=== PATIENT | female | born 1970 | race Two or more races ===

== ENCOUNTER → 2021-01-17 | Outpatient (RCR) | payer OTHER | LOC: M PT 01-04 09:50 | PROVIDERS: ATTEND Physician Assistant | DX: M48.061 Spinal stenosis, lumbar region without neurogenic claudication (principal) ==

== ENCOUNTER 2021-01-31 13:22 | Outpatient (RCR) | payer OTHER | END 2021-02-17 | LOC: M PT 13:22 | PROVIDERS: ATTEND Physician Assistant | DX: M48.061 Spinal stenosis, lumbar region without neurogenic claudication (principal) ==

== ENCOUNTER → 2021-10-11 | Outpatient (CLI) | payer OTHER ==
[~2021-10-11] MED LIST: ACAM0.05 PO; ACET-683 PO; AMLO1TAB24 PO; BUPR-69 PO; CILO50TA PO; DULO1CAP6 PO; FAMO40TA3 PO; FLUT15.820 NARES; HYDR-3363 PO; K-TA10TA2 PO; LORA-674 PO; LYRI150C PO; METF500T13 PO; METO1TAB7 PO; NALT50TA4 PO; PANT40TA29 PO; PRAZ2CAP PO; PREG150C PO; ROSU40TA4 PO; SUMA25TA3 PO; TOPI100T9 PO; TRAZ1TAB14 PO; VENTAER INH
== END ==
LOC: M PAIN 08:30
PROVIDERS: ATTEND Nurse Practitioner Family
DX: M54.50 Low back pain, unspecified (principal); G89.29 Other chronic pain; E11.40 Type 2 diabetes mellitus with diabetic neuropathy, unspecified; G43.909 Migraine, unspecified, not intractable, without status migrainosus; J44.9 Chronic obstructive pulmonary disease, unspecified; M79.7 Fibromyalgia; K21.9 Gastro-esophageal reflux disease without esophagitis; G47.33 Obstructive sleep apnea (adult) (pediatric); F17.210 Nicotine dependence, cigarettes, uncomplicated; Z86.59 Personal history of other mental and behavioral disorders; Z88.1 Allergy status to other antibiotic agents; Z88.5 Allergy status to narcotic agent; Z88.8 Allergy status to other drugs, medicaments and biological substances; Z91.013 Allergy to seafood; Z91.018 Allergy to other foods; Z91.030 Bee allergy status; Z91.041 Radiographic dye allergy status; E66.01 Morbid (severe) obesity due to excess calories; Z68.43 Body mass index [BMI] 50.0-59.9, adult; Z79.84 Long term (current) use of oral hypoglycemic drugs; Z79.899 Other long term (current) drug therapy

== ENCOUNTER → 2021-11-01 | Outpatient (CLI) | payer MEDICARE, OTHER ==
[~2021-11-01] MED LIST changes: -FLUT15.820 NARES; -K-TA10TA2 PO; -LYRI150C PO; -VENTAER INH
== END ==
LOC: M WHC 09:13
PROVIDERS: ATTEND Internal Medicine
DX: N63.21 Unspecified lump in the left breast, upper outer quadrant (principal); R92.0 Mammographic microcalcification found on diagnostic imaging of breast

== ENCOUNTER 2021-11-03 11:53 | Inpatient (IN) | payer MEDICARE, OTHER ==
[~2021-11-03] VITALS: Ht 177.8 cm; Wt 128.1 kg
[2021-11-03 12:13] LABS: BASO # 0.1 10^3/uL (0.0-0.2); BASO % 0.5 % (0.0-1.0); EOS # 0.3 10^3/uL (0.0-0.5); EOS % 2.5 % (0.0-3.0); HEMATOCRIT 41.2 % (36.0-47.0); HEMOGLOBIN 13.4 g/dl (12.0-15.5); LYMPH # 3.3 10^3/uL (1.5-5.0); LYMPH % 29.3 % (24.0-44.0); MEAN CORPUSCULAR HEMOGLOBIN 29.6 pg (27.0-33.0); MEAN CORPUSCULAR HGB CONC 32.5 g/dl (32.0-36.5); MEAN CORPUSCULAR VOLUME 91.2 fl (80.0-96.0); MONO # 0.5 10^3/uL (0.0-0.8); MONO % 4.8 % (2.0-8.0); NEUTROPHILS # 6.9 10^3/uL (1.5-8.5); NEUTROPHILS % 61.7 % (36.0-66.0); PLATELET COUNT, AUTOMATED 382 10^3/uL (150-450); RED BLOOD COUNT 4.52 10^6/uL (4.00-5.40); WHITE BLOOD COUNT 11.1 10^3/uL (4.0-10.0)
[2021-11-03] MEDS ORDERED: ASPIRIN 81 MG CHEW TABLET PO ONE (12:40)
[2021-11-03] MEDS ORDERED: MORPHINE 4 MG/ML 1ML VIAL/SYRINGE IV ONE ×2 (12:40→18:30)
[2021-11-03] MEDS ORDERED: GI COCKTAIL 50ML BTL(HYOSCYAMINE/MAALOX/LIDOCAINE VISCOUS)(1:3:1) PO ONE (12:40)
[2021-11-03 12:50] LABS: CK-MB VALUE MASS 1.7 NG/ML (<3.6); MB/CK RELATIVE INDEX 2.27 (< OR =4)
[2021-11-03 13:06] LABS: ALBUMIN 3.3 GM/DL (3.2-5.2); ALT/SGPT 29 U/L (12-78); BILIRUBIN,DIRECT < 0.1 MG/DL (0.0-0.2); BILIRUBIN,TOTAL 0.3 MG/DL (0.2-1.0); BLOOD UREA NITROGEN 9 MG/DL (7-18); CALCIUM LEVEL 8.8 MG/DL (8.5-10.1); CARBON DIOXIDE LEVEL 26 MEQ/L (21-32); CHLORIDE LEVEL 105 MEQ/L (98-107); CREATININE FOR GFR 0.72 MG/DL (0.55-1.30); GLOMERULAR FILTRATION RATE > 60.0 (>58); GLUCOSE, FASTING 218 MG/DL (70-100); LIPASE 158 U/L (73-393); POTASSIUM SERUM 4.4 MEQ/L (3.5-5.1); SODIUM LEVEL 137 MEQ/L (136-145); TOTAL PROTEIN 7.5 GM/DL (6.4-8.2)
[2021-11-03 13:45] LABS: CK-MB VALUE MASS 1.7 NG/ML (<3.6); MB/CK RELATIVE INDEX 2.33 (< OR =4)
[2021-11-03 14:49] LABS: RSV AMPLIFICATION NEGATIVE (NEGATIVE)
[2021-11-03] MEDS ORDERED: HYDR-3363 PO (15:34)
[2021-11-03] MEDS ORDERED: METO1TAB7 PO (15:34)
[2021-11-03] MEDS ORDERED: ACET-683 PO (15:34)
[2021-11-03] MEDS ORDERED: NALT50TA4 PO (15:34)
[2021-11-03] MEDS ORDERED: METF500T13 PO (15:34)
[2021-11-03] MEDS ORDERED: ACAM0.05 PO (15:34)
[2021-11-03] MEDS ORDERED: PRAZ2CAP PO (15:34)
[2021-11-03] MEDS ORDERED: FAMO40TA3 PO (15:34)
[2021-11-03] MEDS ORDERED: PANT40TA29 PO (15:34)
[2021-11-03] MEDS ORDERED: TRAZ1TAB14 PO (15:34)
[2021-11-03] MEDS ORDERED: DULO1CAP6 PO (15:34)
[2021-11-03] MEDS ORDERED: PREG150C PO (15:34)
[2021-11-03] MEDS ORDERED: TOPI100T9 PO (15:34)
[2021-11-03] MEDS ORDERED: LORA-674 PO (15:34)
[2021-11-03] MEDS ORDERED: BUPR-69 PO (15:34)
[2021-11-03] MEDS ORDERED: ROSU40TA4 PO (15:34)
[2021-11-03] MEDS ORDERED: HOME MED LIST COMPLETE! XX SCH ×2 (15:40→18:20)
[2021-11-03] MEDS ORDERED: METOPROLOL TART 25 MG TABLET PO ONE (18:10)
[2021-11-03] MEDS ORDERED: CILO50TA PO (18:20)
[2021-11-03] MEDS ORDERED: ACETAMINOPHEN TAB 650MG DOSE (2X325MG) PO PRN (19:15)
[2021-11-03 19:19] LABS: ERYTHROCYTE SEDIMENTATION RATE 43 mm/hr (0-20)
[2021-11-03] MEDS ORDERED: GLUCAGON INJ 1MG VIAL SC PRN (19:35)
[2021-11-03] MEDS ORDERED: DEXTROSE 50% 50 ML SYRINGE IV PRN (19:35)
[2021-11-03] MEDS ORDERED: GLUCOSE 4GM CHEW TABLET PO PRN (19:35)
[2021-11-03 19:40] LABS: HEMOGLOBIN A1c 7.1 %
[2021-11-03] MEDS ORDERED: LIDOCAINE 5% (LIDODERM) PATCH TD ONE (20:00)
[2021-11-03] MEDS ORDERED: PRAZOSIN 1 MG CAP PO SCH (21:00)
[2021-11-03] MEDS ORDERED: traZODone 50 MG TAB PO SCH (21:00)
[2021-11-03] MEDS ORDERED: ANALGESIC BALM CRM 3OZ TOP SCH (21:00)
[2021-11-03] MEDS ORDERED: INSULIN LISPRO (NovoLOG) PER UNIT SC SCH (21:00)
[2021-11-03 21:15] VITALS: BP 174/81
[2021-11-03] MEDS: ACETAMINOPHEN 500 MG TAB PO SCH (21:33)
[2021-11-03] MEDS: FAMOTIDINE 20 MG TAB PO SCH (21:34)
[2021-11-03 21:50] LABS: C REACTIVE PROTEIN QUANTITATIV 1.74 MG/DL (0.00-0.30); MAGNESIUM LEVEL 1.9 MG/DL (1.8-2.4)
[2021-11-03] MEDS: DULoxetine 30MG CAPSULE (CYMBALTA) PO SCH ×2 (22:28→22:40)
[2021-11-03] MEDS: ACAMPROSATE CALCIUM 333 MG TABLET (CAMPRAL) PO SCH ×2 (22:31→22:39)
[2021-11-03] MEDS: TOPIRAMATE (TopAMAX) 100 MG TAB PO SCH (22:32)
[2021-11-03] MEDS: buPROPion 100 MG TAB PO SCH ×2 (22:32→22:40)
[2021-11-03] MEDS: PROCHLORPERAZINE 10MG 2ML VIAL IV PRN (23:02)
[2021-11-03] MEDS: PREGABALIN 75 MG CAP(LYRICA) PO SCH (23:02)
[2021-11-04] VITALS (19 sets, daily range): BP systolic 122–201; BP diastolic 60–86; O2SAT 94–97
[2021-11-04 03:52] LABS: HEMATOCRIT 37.5 % (36.0-47.0); HEMOGLOBIN 12.6 g/dl (12.0-15.5); MEAN CORPUSCULAR HEMOGLOBIN 30.7 pg (27.0-33.0); MEAN CORPUSCULAR HGB CONC 33.6 g/dl (32.0-36.5); MEAN CORPUSCULAR VOLUME 91.5 fl (80.0-96.0); PLATELET COUNT, AUTOMATED 347 10^3/uL (150-450); WHITE BLOOD COUNT 12.6 10^3/uL (4.0-10.0)
[2021-11-04 04:22] LABS: ALBUMIN 2.9 GM/DL (3.2-5.2); ALT/SGPT 32 U/L (12-78); BILIRUBIN,TOTAL 0.3 MG/DL (0.2-1.0); BLOOD UREA NITROGEN 9 MG/DL (7-18); CALCIUM LEVEL 8.3 MG/DL (8.5-10.1); CARBON DIOXIDE LEVEL 22 MEQ/L (21-32); CHLORIDE LEVEL 108 MEQ/L (98-107); CK-MB VALUE MASS 1.6 NG/ML (<3.6); CREATININE FOR GFR 0.64 MG/DL (0.55-1.30); GLOMERULAR FILTRATION RATE > 60.0 (>58); GLUCOSE, FASTING 124 MG/DL (70-100); MAGNESIUM LEVEL 1.9 MG/DL (1.8-2.4); MB/CK RELATIVE INDEX 2.91 (< OR =4); POTASSIUM SERUM 3.9 MEQ/L (3.5-5.1); SODIUM LEVEL 138 MEQ/L (136-145); TOTAL PROTEIN 6.9 GM/DL (6.4-8.2)
[2021-11-04] MEDS: ACETAMINOPHEN 500 MG TAB PO SCH ×2 (06:12→14:55)
[2021-11-04] MEDS: INSULIN LISPRO (NovoLOG) PER UNIT SC SCH ×3 (07:30→17:30)
[2021-11-04] MEDS ORDERED: **NOTE PATIENT COMMENT** MISC XX SCH (08:00)
[2021-11-04] MEDS: buPROPion 100 MG TAB PO SCH (08:19)
[2021-11-04] MEDS: ACAMPROSATE CALCIUM 333 MG TABLET (CAMPRAL) PO SCH (08:19)
[2021-11-04] MEDS: FAMOTIDINE 20 MG TAB PO SCH (08:21)
[2021-11-04] MEDS: PREGABALIN 75 MG CAP(LYRICA) PO SCH (08:21)
[2021-11-04] MEDS: TOPIRAMATE (TopAMAX) 100 MG TAB PO SCH (08:23)
[2021-11-04] MEDS ORDERED: ROSUVASTATIN 10 MG TAB (CRESTOR) PO SCH (09:00)
[2021-11-04] MEDS ORDERED: METOPROLOL SUCC (TopROL XL) 50MG **XL** TAB PO SCH (09:00)
[2021-11-04] MEDS ORDERED: ENOXAPARIN 40MG/0.4ML SYRINGE (J1650 PER 10MG) SC SCH (09:00)
[2021-11-04] MEDS ORDERED: LORATADINE 10 MG TAB PO SCH (09:00)
[2021-11-04] MEDS ORDERED: NALTREXONE 50 MG TAB PO SCH (09:00)
[2021-11-04] MEDS ORDERED: DULoxetine 30MG CAPSULE (CYMBALTA) PO SCH (09:00)
[2021-11-04] MEDS ORDERED: PANTOPRAZOLE 40MG TAB (PROTONIX) PO SCH (09:00)
[2021-11-04] MEDS ORDERED: amLODIPine 5 MG TAB PO SCH (10:40)
[2021-11-04] MEDS ORDERED: hydrALAZINE 20MG/ML 1ML VIAL (J0360 PER 20MG) IV ONE (10:40)
[2021-11-04] MEDS: PROCHLORPERAZINE 10MG 2ML VIAL IV PRN (10:59)
[2021-11-04 11:05] LABS: VITAMIN B12 LEVEL 484 PG/ML (247-911)
[2021-11-04] MEDS ORDERED: hydrALAZINE 20MG/ML 1ML VIAL (J0360 PER 20MG) IV STA (11:23)
[2021-11-04] MEDS ORDERED: ONDANSETRON 4MG 2ML VIAL IV PRN (11:25)
[2021-11-04] MEDS ORDERED: SUMA25TA3 PO (12:33)
[2021-11-04] MEDS ORDERED: HOME MED LIST COMPLETE! XX SCH (12:35)
[2021-11-04] MEDS ORDERED: SUMAtriptan SUCCINATE 25 MG TAB PO PRN (14:00)
[2021-11-04] MEDS ORDERED: AMLO1TAB24 PO (17:06)
[2021-11-04] MEDS ORDERED: metFORMIN (GLUCOPHAGE) 500MG TAB PO SCH (21:00)
== END 2021-11-04 18:27 | disposition home or self-care (01) | DRG 552 ==
LOC: M ED 11:53 → EDBD 11:53 → M ED INP 19:15 → ENRESERVTM 20:13 → ENRESERVDT 20:13 → M PCU 21:14
PROVIDERS: ADMIT Internal Medicine; ATTEND Internal Medicine
DX: M54.2 Cervicalgia (principal); R07.89 Other chest pain; E66.01 Morbid (severe) obesity due to excess calories; M48.061 Spinal stenosis, lumbar region without neurogenic claudication; E11.9 Type 2 diabetes mellitus without complications; G89.29 Other chronic pain; F17.210 Nicotine dependence, cigarettes, uncomplicated; D72.829 Elevated white blood cell count, unspecified; I10 Essential (primary) hypertension; Z90.49 Acquired absence of other specified parts of digestive tract; N63.21 Unspecified lump in the left breast, upper outer quadrant; Z20.822 Contact with and (suspected) exposure to COVID-19; Z88.2 Allergy status to sulfonamides; Z88.8 Allergy status to other drugs, medicaments and biological substances; Z91.013 Allergy to seafood; Z91.018 Allergy to other foods; Z91.041 Radiographic dye allergy status; Z79.899 Other long term (current) drug therapy; I16.0 Hypertensive urgency; R13.10 Dysphagia, unspecified; G43.909 Migraine, unspecified, not intractable, without status migrainosus

== ENCOUNTER → 2021-11-13 | Outpatient (CLI) | payer MEDICARE, OTHER ==
[~2021-11-13] MED LIST changes: +FLUT15.820 NARES; +K-TA10TA2 PO; +LYRI150C PO; +VENTAER INH
[2021-11-13 11:54] VITALS: BP 130/84
== END ==
LOC: M WHCPRO 09:45
PROVIDERS: ATTEND Surgery
DX: C50.412 Malignant neoplasm of upper-outer quadrant of left female breast (principal)

== ENCOUNTER → 2021-11-20 | Outpatient (CLI) | payer MEDICARE, OTHER ==
[2021-11-20 09:14] VITALS: BP 130/90
== END ==
LOC: M WHCPRO 07:39
PROVIDERS: ATTEND Surgery
DX: N60.22 Fibroadenosis of left breast (principal)

== ENCOUNTER → 2021-12-16 | Outpatient (CLI) | payer MEDICARE, OTHER ==
[~2021-12-16] MED LIST changes: +ACET-897 PO; +DILA2TAB6 PO
== END ==
LOC: M LABSMTC 11:27
PROVIDERS: ATTEND Anesthesiology
DX: Z01.812 Encounter for preprocedural laboratory examination (principal); Z20.822 Contact with and (suspected) exposure to COVID-19

== ENCOUNTER 2021-12-17 08:21 | Observation (INO) | payer MEDICARE, OTHER ==
[~2021-12-17] VITALS: Ht 177.8 cm; Wt 129.2 kg
[~2021-12-17 08:21] MED LIST changes: -ACET-897 PO; -DILA2TAB6 PO; +HEPARIN SOD (PORCINE) 5000UNITS/ML 1ML VIAL/SYRINGE SQ ONE; +NS 1,000 ML IV ONE; +ceFAZolin SOD 1 GM in D5W MINI-BAG PLUS 50 ML IV ONE; +ceFAZolin SOD 2 GM in IV 1 EA IV ONE
[2021-12-17] MEDS ORDERED: LIDOCAINE 2% 100MG/5ML SDV (FOR ANES.) As Ordered ONE (12:23)
[2021-12-17] MEDS ORDERED: propofoL 200 MG/20 ML VIAL As Ordered ONE ×2 (12:23→15:03)
[2021-12-17] MEDS ORDERED: ROCURONIUM BROMIDE 50 MG/5 ML VIAL As Ordered ONE (12:23)
[2021-12-17] MEDS ORDERED: dexameTHASONE 4 MG/ML 1ML VIAL (J1100 PER 1MG) As Ordered ONE (12:23)
[2021-12-17] MEDS ORDERED: fentaNYL 250 MCG/5 ML INJECTION As Ordered ONE (12:26)
[2021-12-17] MEDS ORDERED: MIDAZOLAM INJ 2MG/2ML VIAL (J2250 PER 1MG) As Ordered ONE (12:26)
[2021-12-17] MEDS ORDERED: NEOSTIGMINE 10MG/10ML VIAL (J2710 PER 0.5MG) As Ordered ONE (12:46)
[2021-12-17] MEDS ORDERED: ONDANSETRON 4MG 2ML VIAL As Ordered ONE (12:47)
[2021-12-17] MEDS ORDERED: LIDOCAINE 1% SDV 30ML VIAL As Ordered ONE (13:19)
[2021-12-17] MEDS ORDERED: BUPIVACAINE HCL 0.25% 30ML VIAL As Ordered ONE (13:19)
[2021-12-17] MEDS ORDERED: METHYLENE BLUE 0.5% (5MG/ML) 10 ML AMP (PROVAYBLUE) As Ordered ONE (13:19)
[2021-12-17] MEDS ORDERED: BUPIVACAINE LIPOSOME/PF 1.3% 20ML VIAL (13.3MG/ML)(EXPAREL) As Ordered ONE (13:50)
[2021-12-17] MEDS ORDERED: ALBUTEROL 6.7GM INHALER **FOR ANES. CART/OMNICELL ONLY As Ordered ONE (14:09)
[2021-12-17] MEDS ORDERED: SUGAMMADEX SODIUM 500 MG/5 ML VIAL (BRIDION) As Ordered ONE (14:17)
[2021-12-17] MEDS ORDERED: KETAMINE HCL 200 MG/20 ML VIAL As Ordered ONE (14:31)
[2021-12-17] MEDS ORDERED: ACETAMINOPHEN 1000MG 100ML IV BTL (OFIRMEV) (J0131 PER 10MG) As Ordered ONE (14:38)
[2021-12-17] MEDS ORDERED: PHENYLephrine 500MCG 5ML (100MCG/ML) SYRINGE As Ordered ONE (15:08)
[2021-12-17] MEDS ORDERED: ONDANSETRON 4MG 2ML VIAL IV PRN ×2 (17:35→17:40)
[2021-12-17] MEDS ORDERED: ACETAMINOPHEN TAB 650MG DOSE (2X325MG) PO PRN (17:35)
[2021-12-17] MEDS ORDERED: oxyCODONE 5MG TAB PO PRN ×2 (17:35→17:40)
[2021-12-17] MEDS ORDERED: LR 1,000 ML IV SCH ×2 (17:35→17:40)
[2021-12-17] MEDS ORDERED: fentaNYL 100 MCG/2 ML INJECTION IV PRN (17:40)
[2021-12-17] MEDS ORDERED: HYDROMORPHONE HCL 0.5 MG/ 0.5 ML SYRINGE (J1170 PER 1) IV PRN (17:40)
[2021-12-17] MEDS ORDERED: SUMAtriptan SUCCINATE 25 MG TAB PO PRN (18:25)
[2021-12-17] MEDS ORDERED: ALBUTEROL 90 MCG/ACT 8GM HFA INHALER INH PRN (18:25)
[2021-12-17] MEDS ORDERED: PILL CUTTER 1 EACH XX PRN (19:35)
[2021-12-17] MEDS ORDERED: ACET-897 PO (20:20)
[2021-12-17] MEDS ORDERED: HOME MED LIST COMPLETE! XX SCH (20:25)
[2021-12-17 20:30] VITALS: BP 152/88
[2021-12-17 21:00] VITALS: BP 154/88
[2021-12-17] MEDS: DULoxetine 30MG CAPSULE (CYMBALTA) PO SCH ×2 (21:00→23:11)
[2021-12-17] MEDS ORDERED: PRAZOSIN 1 MG CAP PO SCH (21:00)
[2021-12-17] MEDS ORDERED: traZODone 50 MG TAB PO SCH (21:00)
[2021-12-17] MEDS ORDERED: TOPIRAMATE (TopAMAX) 100 MG TAB PO SCH (21:00)
[2021-12-17] MEDS ORDERED: FAMOTIDINE 20 MG TAB PO SCH ×2 (21:00)
[2021-12-17 22:00] VITALS: BP 125/68
[2021-12-17] MEDS ORDERED: ceFAZolin SOD 3 GM in D5W MINI-BAG PLUS 50 ML IV SCH (22:00)
[2021-12-17 23:00] VITALS: BP 122/69
[2021-12-17] MEDS: PANTOPRAZOLE 40MG TAB (PROTONIX) PO SCH (23:10)
[2021-12-17] MEDS: PREGABALIN 75 MG CAP(LYRICA) PO SCH (23:11)
[2021-12-17] MEDS: ACAMPROSATE CALCIUM 333 MG TABLET (CAMPRAL) PO SCH (23:11)
[2021-12-17] MEDS: buPROPion 100 MG TAB PO SCH (23:11)
[2021-12-17] MEDS: ceFAZolin SOD 2 GM in IV 1 EA IV SCH (23:12)
[2021-12-17] MEDS: HEPARIN SOD (PORCINE) 5000UNITS/ML 1ML VIAL/SYRINGE SQ SCH (23:13)
[2021-12-18] VITALS: BP 130/65
[2021-12-18] MEDS: ceFAZolin SOD 1 GM in D5W MINI-BAG PLUS 50 ML IV SCH ×2 (00:11→05:38)
[2021-12-18 02:00] VITALS: BP 128/69
[2021-12-18] MEDS: ceFAZolin SOD 2 GM in IV 1 EA IV SCH (05:38)
[2021-12-18] MEDS: HEPARIN SOD (PORCINE) 5000UNITS/ML 1ML VIAL/SYRINGE SQ SCH (05:39)
[2021-12-18 06:00] VITALS: BP 128/69
[2021-12-18] MEDS ORDERED: CILOSTAZOL 100 MG TAB (PLETAL) PO SCH (07:30)
[2021-12-18] MEDS: PREGABALIN 75 MG CAP(LYRICA) PO SCH (08:10)
[2021-12-18 08:11] VITALS: BP 130/67
[2021-12-18] MEDS: ACAMPROSATE CALCIUM 333 MG TABLET (CAMPRAL) PO SCH (08:12)
[2021-12-18] MEDS: PANTOPRAZOLE 40MG TAB (PROTONIX) PO SCH (08:12)
[2021-12-18] MEDS: buPROPion 100 MG TAB PO SCH ×2 (08:12→08:19)
[2021-12-18] MEDS: DULoxetine 30MG CAPSULE (CYMBALTA) PO SCH (08:18)
[2021-12-18] MEDS ORDERED: DILA2TAB6 PO (08:22)
[2021-12-18] MEDS ORDERED: NALTREXONE 50 MG TAB PO SCH (09:00)
[2021-12-18] MEDS ORDERED: amLODIPine 5 MG TAB PO SCH (09:00)
[2021-12-18] MEDS ORDERED: POTASSIUM CHLORIDE 10MEQ SR TABLET PO SCH (09:00)
[2021-12-18] MEDS ORDERED: ROSUVASTATIN 10 MG TAB (CRESTOR) PO SCH (09:00)
[2021-12-18] MEDS ORDERED: METOPROLOL SUCC (TopROL XL) 50MG **XL** TAB PO SCH (09:00)
[2021-12-18] MEDS ORDERED: PANTOPRAZOLE 40MG TAB (PROTONIX) PO SCH (09:00)
[2021-12-18] MEDS ORDERED: FLUTICASONE PROP 0.05% NASAL SPRAY 16 GM (FLONASE) NARES PRN (09:00)
[2021-12-18] MEDS ORDERED: LORATADINE 10 MG TAB PO SCH (09:00)
[2021-12-18] MEDS ORDERED: metFORMIN (GLUCOPHAGE) 500MG TAB PO SCH (17:30)
== END 2021-12-18 11:15 | disposition home or self-care (01) ==
LOC: M SDC 08:21 → M MS5PR 08:22 → M ED INP 17:33 → M MS5PR 20:00
PROVIDERS: ADMIT Surgery; ATTEND Surgery
DX: C50.912 Malignant neoplasm of unspecified site of left female breast (principal); Z17.0 Estrogen receptor positive status [ER+]; F10.11 Alcohol abuse, in remission; J44.9 Chronic obstructive pulmonary disease, unspecified; G43.909 Migraine, unspecified, not intractable, without status migrainosus; F32.A Depression, unspecified; M79.7 Fibromyalgia; Z79.899 Other long term (current) drug therapy; G47.33 Obstructive sleep apnea (adult) (pediatric); K21.9 Gastro-esophageal reflux disease without esophagitis; I10 Essential (primary) hypertension; F43.10 Post-traumatic stress disorder, unspecified; Z79.84 Long term (current) use of oral hypoglycemic drugs; E11.9 Type 2 diabetes mellitus without complications; E78.49 Other hyperlipidemia; F17.210 Nicotine dependence, cigarettes, uncomplicated; Z91.041 Radiographic dye allergy status; Z88.2 Allergy status to sulfonamides; Z88.5 Allergy status to narcotic agent; Z88.8 Allergy status to other drugs, medicaments and biological substances; Z91.030 Bee allergy status; Z91.013 Allergy to seafood; Z91.018 Allergy to other foods
CPT/HCPCS: 19125; 36415; 38525; 76942; 78195; 81025; 86850; 86900; 86901; 88307; 96365; 96366; 96372; A4648; A9520; C9290; G0378; J0131; J0690; J1100; J1644; J2250; J2370; J2405; J3010; Q9968

== ENCOUNTER → 2022-01-06 | Outpatient (CLI) | payer MEDICARE, OTHER ==
[~2022-01-06] MED LIST changes: +ACET-897 PO; +DILA2TAB6 PO; -HEPARIN SOD (PORCINE) 5000UNITS/ML 1ML VIAL/SYRINGE SQ ONE; +LIDOCAINE 1% MDV 20ML VIAL As Ordered ONE; +MIDAZOLAM INJ 2MG/2ML VIAL (J2250 PER 1MG) As Ordered ONE; -NS 1,000 ML IV ONE; +NS 1,000 ML IV SCH; +PROMETHAZINE 25MG/ML 1ML VIAL As Ordered ONE; +ceFAZolin 2 GM/D5W 50 ML IV BAG (J0690 PER 500MG) As Ordered ONE; -ceFAZolin SOD 1 GM in D5W MINI-BAG PLUS 50 ML IV ONE; +diphenhydrAMINE 50MG/ML VIAL (J1200) As Ordered ONE; +fentaNYL 100 MCG/2 ML INJECTION As Ordered ONE
[2022-01-06 14:00] VITALS: BP 137/69
== END ==
LOC: M IRPRO 08:56
PROVIDERS: ATTEND Specialist
DX: C50.919 Malignant neoplasm of unspecified site of unspecified female breast (principal)
CPT/HCPCS: 36561; 87635; 99152; 99153; C1769; C1788; C1894; J0690; J1200; J1642; J1644; J2250; J3010

== ENCOUNTER → 2022-01-23 | Outpatient (CLI) | payer MEDICARE, OTHER ==
[~2022-01-23] MED LIST changes: -LIDOCAINE 1% MDV 20ML VIAL As Ordered ONE; -MIDAZOLAM INJ 2MG/2ML VIAL (J2250 PER 1MG) As Ordered ONE; -NS 1,000 ML IV SCH; -PROMETHAZINE 25MG/ML 1ML VIAL As Ordered ONE; -ceFAZolin 2 GM/D5W 50 ML IV BAG (J0690 PER 500MG) As Ordered ONE; -ceFAZolin SOD 2 GM in IV 1 EA IV ONE; -diphenhydrAMINE 50MG/ML VIAL (J1200) As Ordered ONE; -fentaNYL 100 MCG/2 ML INJECTION As Ordered ONE
== END ==
LOC: M CARPUL 08:08
PROVIDERS: ATTEND Specialist
DX: C50.919 Malignant neoplasm of unspecified site of unspecified female breast (principal); Z79.899 Other long term (current) drug therapy; R93.1 Abnormal findings on diagnostic imaging of heart and coronary circulation

== ENCOUNTER 2022-02-10 14:22 | Outpatient (RCR) | payer MEDICARE, OTHER ==
[~2022-02-10 14:22] MED LIST changes: -CILO50TA PO; +CILO50TA2 PO
[2022-02-13] MEDS ORDERED: BUPR-364 PO (16:46)
[2022-02-14] MEDS ORDERED: FLON1SPR (02:05)
[2022-02-14] MEDS ORDERED: ALBU8.5H INH (02:05)
[2022-02-14] MEDS ORDERED: LYRI150C PO (02:05)
[2022-02-14] MEDS ORDERED: AMLO1TAB24 PO (02:05)
[2022-02-14] MEDS ORDERED: IPRA0.00 INH (02:05)
[2022-02-15] MEDS ORDERED: FLON1SPR (10:51)
[2022-02-15] MEDS ORDERED: AMLO10TA PO (10:51)
[2022-02-15] MEDS ORDERED: IBUP-1114 PO (10:56)
== END 2022-02-17 ==
LOC: M PT 14:22
PROVIDERS: ATTEND Nurse Practitioner Women's Health
DX: C50.912 Malignant neoplasm of unspecified site of left female breast (principal)

== ENCOUNTER 2022-02-11 10:35 | Outpatient (RCR) | payer MEDICARE, OTHER ==
[2022-02-13] MEDS ORDERED: BUPR-364 PO (16:46)
[2022-02-14] MEDS ORDERED: AMLO1TAB24 PO (02:05)
[2022-02-14] MEDS ORDERED: LYRI150C PO (02:05)
[2022-02-14] MEDS ORDERED: IPRA0.00 INH (02:05)
[2022-02-14] MEDS ORDERED: ALBU8.5H INH (02:05)
[2022-02-14] MEDS ORDERED: FLON1SPR (02:05)
[2022-02-15] MEDS ORDERED: AMLO10TA PO (10:51)
[2022-02-15] MEDS ORDERED: FLON1SPR (10:51)
[2022-02-15] MEDS ORDERED: IBUP-1114 PO (10:56)
== END 2022-02-17 ==
LOC: M ONCR 10:35
PROVIDERS: ATTEND General Practice
DX: C50.412 Malignant neoplasm of upper-outer quadrant of left female breast (principal)

== ENCOUNTER 2022-02-13 16:18 | Observation (INO) | payer MEDICARE, OTHER ==
[~2022-02-13] VITALS: Ht 177.8 cm; Wt 132.6 kg
[~2022-02-13 16:18] MED LIST changes: +SODIUM CHLORIDE 0.9% INJ 10 ML SYR IV SCH
[2022-02-13] MEDS ORDERED: BUPR-364 PO (16:46)
[2022-02-13 19:51] LABS: RSV AMPLIFICATION NEGATIVE (NEGATIVE)
[2022-02-13 21:55] LABS: BASO # 0.1 10^3/uL (0.0-0.2); BASO % 0.5 % (0.0-1.0); EOS # 0.4 10^3/uL (0.0-0.5); EOS % 2.8 % (0.0-3.0); HEMATOCRIT 41.5 % (36.0-47.0); HEMOGLOBIN 13.3 g/dl (12.0-15.5); LYMPH # 4.7 10^3/uL (1.5-5.0); MEAN CORPUSCULAR HEMOGLOBIN 29.6 pg (27.0-33.0); MEAN CORPUSCULAR VOLUME 92.2 fl (80.0-96.0); MONO # 0.6 10^3/uL (0.0-0.8); MONO % 4.4 % (2.0-8.0); NEUTROPHILS # 8.6 10^3/uL (1.5-8.5); NEUTROPHILS % 59.1 % (36.0-66.0); PLATELET COUNT, AUTOMATED 357 10^3/uL (150-450); WHITE BLOOD COUNT 14.5 10^3/uL (4.0-10.0)
[2022-02-13 22:18] LABS: INR 0.85; PROTHROMBIN TIME 11.8 SECONDS (12.5-14.5)
[2022-02-13 22:19] LABS: PARTIAL THROMBOPLASTIN TIME 20.5 SECONDS (24.8-34.2)
[2022-02-13 22:21] LABS: D-DIMER QUANT 1030.13 ng/ml (<500)
[2022-02-13 22:24] LABS: CK-MB VALUE MASS 1.5 NG/ML (<3.6); MB/CK RELATIVE INDEX 2.21 (< OR =4)
[2022-02-13 22:28] LABS: BLOOD UREA NITROGEN 11 MG/DL (7-18); CARBON DIOXIDE LEVEL 22 MEQ/L (21-32); CHLORIDE LEVEL 108 MEQ/L (98-107); CREATININE FOR GFR 0.64 MG/DL (0.55-1.30); GLOMERULAR FILTRATION RATE > 60.0 (>58); GLUCOSE, FASTING 110 MG/DL (70-100); SODIUM LEVEL 137 MEQ/L (136-145)
[2022-02-13 22:29] LABS: ALBUMIN 3.4 GM/DL (3.2-5.2); ALT/SGPT 34 U/L (12-78); BILIRUBIN,DIRECT < 0.1 MG/DL (0.0-0.2); BILIRUBIN,TOTAL 0.2 MG/DL (0.2-1.0); CALCIUM LEVEL 9.5 MG/DL (8.5-10.1); FREE T4 0.91 NG/DL (0.76-1.46); LIPASE 172 U/L (73-393); NT-PRO BNP 81 PG/ML (<125); TOTAL PROTEIN 7.6 GM/DL (6.4-8.2)
[2022-02-13] MEDS ORDERED: ENOXAPARIN 100MG/1ML SYRINGE (J1650 PER 10MG) SC ONE (23:10)
[2022-02-13] MEDS ORDERED: ENOXAPARIN 150MG/ML SYRINGE (J1650 PER 10MG) SC ONE (23:30)
[2022-02-13] MEDS ORDERED: PRAZOSIN 1 MG CAP PO ONE (23:40)
[2022-02-13] MEDS ORDERED: traZODone 50 MG TAB PO ONE (23:40)
[2022-02-13] MEDS ORDERED: ACETAMINOPHEN TAB 650MG DOSE (2X325MG) PO PRN (23:40)
[2022-02-13] MEDS ORDERED: PERCOCET 5MG/325MG TAB PO PRN ×2 (23:40)
[2022-02-13] MEDS ORDERED: PANTOPRAZOLE 40MG TAB (PROTONIX) PO ONE (23:45)
[2022-02-13] MEDS ORDERED: FAMOTIDINE 20 MG TAB PO ONE (23:45)
[2022-02-14] MEDS ORDERED: AMLO1TAB24 PO (02:05)
[2022-02-14] MEDS ORDERED: LYRI150C PO (02:05)
[2022-02-14] MEDS ORDERED: ALBU8.5H INH (02:05)
[2022-02-14] MEDS ORDERED: IPRA0.00 INH (02:05)
[2022-02-14] MEDS ORDERED: FLON1SPR (02:05)
[2022-02-14] MEDS ORDERED: HOME MED LIST COMPLETE! XX SCH (02:10)
[2022-02-14] MEDS ORDERED: PREGABALIN 75 MG CAP(LYRICA) PO PRN (02:30)
[2022-02-14] MEDS ORDERED: FLUTICASONE PROP 0.05% NASAL SPRAY 16 GM (FLONASE) PRN (02:30)
[2022-02-14] MEDS ORDERED: ACAMPROSATE CALCIUM 333 MG TABLET (CAMPRAL) PO PRN (02:30)
[2022-02-14] MEDS ORDERED: ALBUTEROL 90 MCG/ACT 8GM HFA INHALER INH PRN (02:30)
[2022-02-14] MEDS ORDERED: IPRATROPIUM 0.5MG/ALBUTEROL 2.5MG INH SOL UD 3ML (DUONEB) INH PRN (02:30)
[2022-02-14] MEDS ORDERED: SUMAtriptan SUCCINATE 25 MG TAB PO PRN (02:30)
[2022-02-14] MEDS ORDERED: PILL CUTTER 1 EACH XX PRN (03:35)
[2022-02-14] MEDS: CILOSTAZOL 100 MG TAB (PLETAL) PO SCH ×2 (08:11→18:52)
[2022-02-14] MEDS: LORATADINE 10 MG TAB PO SCH (08:11)
[2022-02-14] MEDS: DULoxetine 30MG CAPSULE (CYMBALTA) PO SCH ×2 (08:11→20:31)
[2022-02-14] MEDS: PANTOPRAZOLE 40MG TAB (PROTONIX) PO SCH ×2 (08:11→20:30)
[2022-02-14 08:34] LABS: HEMATOCRIT 40.6 % (36.0-47.0); HEMOGLOBIN 12.9 g/dl (12.0-15.5); MEAN CORPUSCULAR HEMOGLOBIN 29.5 pg (27.0-33.0); MEAN CORPUSCULAR HGB CONC 31.8 g/dl (32.0-36.5); MEAN CORPUSCULAR VOLUME 92.9 fl (80.0-96.0); PLATELET COUNT, AUTOMATED 384 10^3/uL (150-450); RED BLOOD COUNT 4.37 10^6/uL (4.00-5.40); WHITE BLOOD COUNT 11.3 10^3/uL (4.0-10.0)
[2022-02-14] MEDS ORDERED: POTASSIUM CHLORIDE 10MEQ SR TABLET PO SCH (09:00)
[2022-02-14] MEDS ORDERED: amLODIPine 5 MG TAB PO SCH (09:00)
[2022-02-14] MEDS ORDERED: FAMOTIDINE 20 MG TAB PO SCH (09:00)
[2022-02-14 14:30] VITALS: BP 150/72
[2022-02-14] MEDS ORDERED: metFORMIN (GLUCOPHAGE) 500MG TAB PO SCH (18:00)
[2022-02-14 20:00] VITALS: BP 182/104
[2022-02-14 20:12] VITALS: BP 158/90
[2022-02-14] MEDS ORDERED: traZODone 50 MG TAB PO SCH (21:00)
[2022-02-14] MEDS ORDERED: ROSUVASTATIN 10 MG TAB (CRESTOR) PO SCH (21:00)
[2022-02-14] MEDS ORDERED: buPROPion 100 MG TAB PO SCH (21:00)
[2022-02-14] MEDS ORDERED: PRAZOSIN 1 MG CAP PO SCH (21:00)
[2022-02-14] MEDS ORDERED: METOPROLOL SUCC (TopROL XL) 50MG **XL** TAB PO SCH (21:00)
[2022-02-14] MEDS ORDERED: TOPIRAMATE (TopAMAX) 100 MG TAB PO SCH (21:00)
[2022-02-14 21:29] LABS: ERYTHROCYTE SEDIMENTATION RATE 46 mm/hr (0-20)
[2022-02-15 06:00] VITALS: BP 133/80
[2022-02-15] MEDS ORDERED: ENOXAPARIN 40MG/0.4ML SYRINGE (J1650 PER 10MG) SC SCH (09:00)
[2022-02-15 09:05] LABS: BASO % 0.3 % (0.0-1.0); EOS # 0.2 10^3/uL (0.0-0.5); EOS % 1.5 % (0.0-3.0); HEMATOCRIT 40.7 % (36.0-47.0); LYMPH # 2.7 10^3/uL (1.5-5.0); LYMPH % 20.6 % (24.0-44.0); MEAN CORPUSCULAR HEMOGLOBIN 29.7 pg (27.0-33.0); MEAN CORPUSCULAR HGB CONC 31.9 g/dl (32.0-36.5); MEAN CORPUSCULAR VOLUME 93.1 fl (80.0-96.0); MONO # 0.6 10^3/uL (0.0-0.8); MONO % 4.6 % (2.0-8.0); NEUTROPHILS # 9.4 10^3/uL (1.5-8.5); NEUTROPHILS % 72.3 % (36.0-66.0); PLATELET COUNT, AUTOMATED 366 10^3/uL (150-450); RED BLOOD COUNT 4.37 10^6/uL (4.00-5.40)
[2022-02-15] MEDS: PANTOPRAZOLE 40MG TAB (PROTONIX) PO SCH (09:37)
[2022-02-15] MEDS: DULoxetine 30MG CAPSULE (CYMBALTA) PO SCH (09:37)
[2022-02-15 09:39] VITALS: BP 132/59
[2022-02-15] MEDS: LORATADINE 10 MG TAB PO SCH (09:39)
[2022-02-15 09:40] LABS: BLOOD UREA NITROGEN 12 MG/DL (7-18); CALCIUM LEVEL 9.2 MG/DL (8.5-10.1); CARBON DIOXIDE LEVEL 25 MEQ/L (21-32); CHLORIDE LEVEL 104 MEQ/L (98-107); CREATININE FOR GFR 0.82 MG/DL (0.55-1.30); GLOMERULAR FILTRATION RATE > 60.0 (>58); GLUCOSE, FASTING 157 MG/DL (70-100); POTASSIUM SERUM 3.8 MEQ/L (3.5-5.1); SODIUM LEVEL 135 MEQ/L (136-145)
[2022-02-15] MEDS: CILOSTAZOL 100 MG TAB (PLETAL) PO SCH (09:43)
[2022-02-15] MEDS ORDERED: AMLO10TA PO (10:51)
[2022-02-15] MEDS ORDERED: FLON1SPR (10:51)
[2022-02-15] MEDS ORDERED: IBUP-1114 PO (10:56)
== END 2022-02-15 13:10 | disposition home or self-care (01) ==
LOC: M ED 16:18 → M ED INP 16:19 → ENRESERV 02-14 13:32 → M MSPAV 02-14 14:28
PROVIDERS: ADMIT Family Medicine; ATTEND Internal Medicine
DX: R07.89 Other chest pain (principal); R79.89 Other specified abnormal findings of blood chemistry; D72.829 Elevated white blood cell count, unspecified; Z87.820 Personal history of traumatic brain injury; G43.909 Migraine, unspecified, not intractable, without status migrainosus; Z85.3 Personal history of malignant neoplasm of breast; E11.9 Type 2 diabetes mellitus without complications; I10 Essential (primary) hypertension; E78.5 Hyperlipidemia, unspecified; M79.7 Fibromyalgia; J45.909 Unspecified asthma, uncomplicated; K21.9 Gastro-esophageal reflux disease without esophagitis; I73.9 Peripheral vascular disease, unspecified; Z91.041 Radiographic dye allergy status; Z91.030 Bee allergy status; Z91.018 Allergy to other foods; Z91.013 Allergy to seafood; Z88.8 Allergy status to other drugs, medicaments and biological substances; Z88.5 Allergy status to narcotic agent; Z79.84 Long term (current) use of oral hypoglycemic drugs; Z79.899 Other long term (current) drug therapy
CPT/HCPCS: 36415; 71045; 78582; 80048; 80076; 82550; 82553; 83690; 83880; 84439; 84443; 84484; 85025; 85027; 85379; 85610; 85652; 85730; 86140; 87040; 87631; 93005; 93041; 93970; 94760; 96372; 99285; A9540; A9567; G0378; J1650

== ENCOUNTER 2022-03-05 11:50 | Outpatient (RCR) | payer MEDICARE, OTHER ==
[~2022-03-05 11:50] MED LIST changes: +ALBU8.5H INH; +AMLO10TA PO; +BUPR-364 PO; +FLON1SPR; +IBUP-1114 PO; +IPRA0.00 INH; -SODIUM CHLORIDE 0.9% INJ 10 ML SYR IV SCH
[2022-03-11] MEDS ORDERED: ONDA8TAB8 PO (16:00)
[2022-03-11] MEDS ORDERED: PROC10TA5 PO (16:01)
[2022-03-11] MEDS ORDERED: NYST1POW9 TOP (16:05)
== END 2022-03-19 ==
LOC: M ONCR 11:50
PROVIDERS: ATTEND General Practice
DX: C50.412 Malignant neoplasm of upper-outer quadrant of left female breast (principal)

== ENCOUNTER 2022-04-25 07:40 | Inpatient (IN) | payer MEDICARE, OTHER ==
[~2022-04-25] VITALS: Ht 177.8 cm; Wt 128.0 kg
[~2022-04-25 07:40] MED LIST changes: +DEXA4TA PO; +NYST1POW9 TOP; +ONDA8TAB8 PO; +PROC10TA5 PO
[2022-04-25] MEDS ORDERED: NS 1,000 ML IV ONE (07:55)
[2022-04-25 09:01] LABS: HEMATOCRIT 39.1 % (36.0-47.0); HEMOGLOBIN 13.1 g/dl (12.0-15.5); MEAN CORPUSCULAR HEMOGLOBIN 29.8 pg (27.0-33.0); MEAN CORPUSCULAR HGB CONC 33.5 g/dl (32.0-36.5); MEAN CORPUSCULAR VOLUME 88.9 fl (80.0-96.0); PLATELET COUNT, AUTOMATED 130 10^3/uL (150-450)
[2022-04-25 09:13] LABS: RSV AMPLIFICATION NEGATIVE (NEGATIVE)
[2022-04-25] MEDS ORDERED: ACETAMINOPHEN 500 MG TAB PO ONE (09:15)
[2022-04-25 09:16] LABS: WHITE BLOOD COUNT 33.6 10^3/uL (4.0-10.0)
[2022-04-25 09:28] LABS: LIPASE 24 U/L (12-53)
[2022-04-25 09:29] LABS: MAGNESIUM LEVEL 1.5 MG/DL (1.8-2.4)
[2022-04-25 09:31] LABS: BILIRUBIN,DIRECT 0.1 MG/DL (<0.4)
[2022-04-25 09:33] LABS: ATYPICAL LYMPH 2 % (0-5); EOSINOPHILS 1 % (0-3); LYMPHOCYTES 2 % (16-44); NEUTROPHILS 91 % (28-66)
[2022-04-25 09:34] LABS: ALBUMIN 3.2 G/DL (3.2-5.2); ALKALINE PHOSPHATASE 122 U/L (46-116); ALT/SGPT 27 U/L (7.0-40); AST/SGOT 36 U/L (<34); BILIRUBIN,TOTAL 0.4 MG/DL (0.3-1.2); BLOOD UREA NITROGEN 6 MG/DL (9-23); CALCIUM LEVEL 7.9 MG/DL (8.5-10.1); CARBON DIOXIDE LEVEL 26 MMOL/L (20-31); CHLORIDE LEVEL 98 MMOL/L (98-107); CREATININE FOR GFR 0.67 MG/DL (0.55-1.30); GLOMERULAR FILTRATION RATE > 60.0 (>51); GLUCOSE, FASTING 128 MG/DL (60-100); PLATELET ESTIMATE NORMAL (NORMAL); POTASSIUM SERUM 2.9 MMOL/L (3.5-5.1); SODIUM LEVEL 136 MMOL/L (136-145); TOTAL PROTEIN 7.3 G/DL (5.7-8.2)
[2022-04-25 09:36] LABS: ANISOCYTOSIS 1+; GIANT PLATELETS 1+
[2022-04-25] MEDS ORDERED: MAG SULF 1GM/100ML (MAG RUN) 1 GM in IV 1 EA IV ONE (09:45)
[2022-04-25] MEDS ORDERED: POTASSIUM CHLORIDE 10MEQ SR TABLET PO ONE ×2 (10:15→21:45)
[2022-04-25] MEDS ORDERED: KCL 10MEQ/100ML SWI (KRUN) 10 MEQ in IV 1 EA IV ONE ×3 (10:15→22:05)
[2022-04-25] MEDS ORDERED: CLAR10CA3 PO (11:29)
[2022-04-25] MEDS ORDERED: AMLO10TA PO (11:29)
[2022-04-25] MEDS ORDERED: FLUTISP (11:29)
[2022-04-25] MEDS ORDERED: MED REC COMMENT (11:33)
[2022-04-25] MEDS ORDERED: BENA25CA4 PO (11:38)
[2022-04-25] MEDS ORDERED: HOME MED LIST COMPLETE! XX SCH (11:40)
[2022-04-25] MEDS ORDERED: ALBUTEROL 90 MCG/ACT 8GM HFA INHALER INH PRN (13:50)
[2022-04-25] MEDS ORDERED: FLUTICASONE PROP 0.05% NASAL SPRAY 16 GM (FLONASE) PRN (13:50)
[2022-04-25] MEDS ORDERED: IPRATROPIUM 0.5MG/ALBUTEROL 2.5MG INH SOL UD 3ML (DUONEB) INH PRN (13:50)
[2022-04-25] MEDS ORDERED: SUMAtriptan SUCCINATE 25 MG TAB PO PRN (13:50)
[2022-04-25] MEDS ORDERED: PREGABALIN 75 MG CAP(LYRICA) PO PRN (13:50)
[2022-04-25] MEDS ORDERED: diphenhydrAMINE 50MG CAP PO PRN (13:50)
[2022-04-25] MEDS ORDERED: PROCHLORPERAZINE 5MG TAB PO PRN (13:50)
[2022-04-25] MEDS ORDERED: ONDANSETRON 4MG 2ML VIAL IV PRN (13:55)
[2022-04-25] MEDS ORDERED: GLUCAGON INJ 1MG VIAL SC PRN (14:15)
[2022-04-25] MEDS ORDERED: GLUCOSE 4GM CHEW TABLET PO PRN (14:15)
[2022-04-25] MEDS ORDERED: DEXTROSE 50% 50ML SYRINGE IV PRN (14:15)
[2022-04-25 14:56] LABS: INR 0.98; PROTHROMBIN TIME 13.2 SECONDS (12.5-14.5)
[2022-04-25 15:07] VITALS: BP 141/68
[2022-04-25] MEDS: PIPERACILLIN/TAZOBACTAM SOD 4.5 GM in D5W MINI-BAG PLUS 50 ML IV SCH ×2 (15:50→20:28)
[2022-04-25] MEDS: LR 1,000 ML IV SCH (15:50)
[2022-04-25] MEDS: PANTOPRAZOLE 40MG TAB (PROTONIX) PO SCH (15:50)
[2022-04-25] MEDS ORDERED: FLUCONAZOLE 50MG TABLET PO ONE (17:00)
[2022-04-25] MEDS: RIVAROXABAN 10MG TAB (XARELTO) PO SCH (17:19)
[2022-04-25] MEDS: INSULIN LISPRO (NovoLOG) PER UNIT SC SCH ×2 (17:30→20:28)
[2022-04-25 19:35] LABS: BLOOD UREA NITROGEN 7 MG/DL (9-23); CALCIUM LEVEL 7.6 MG/DL (8.5-10.1); CARBON DIOXIDE LEVEL 22 MMOL/L (20-31); CHLORIDE LEVEL 99 MMOL/L (98-107); CREATININE FOR GFR 0.65 MG/DL (0.55-1.30); GLOMERULAR FILTRATION RATE > 60.0 (>51); GLUCOSE, FASTING 127 MG/DL (60-100); SODIUM LEVEL 136 MMOL/L (136-145)
[2022-04-25 20:21] VITALS: BP 145/85
[2022-04-25] MEDS: FAMOTIDINE 20 MG TAB PO SCH (20:24)
[2022-04-25] MEDS: ROSUVASTATIN 10 MG TAB (CRESTOR) PO SCH (20:24)
[2022-04-25] MEDS: traZODone 50 MG TAB PO SCH (20:25)
[2022-04-25] MEDS: ACETAMINOPHEN 500 MG TAB PO PRN (20:25)
[2022-04-25] MEDS: TOPIRAMATE (TopAMAX) 100 MG TAB PO SCH (20:26)
[2022-04-25] MEDS: METOPROLOL SUCC (TopROL XL) 50MG **XL** TAB PO SCH (20:26)
[2022-04-25] MEDS: DULoxetine 30MG CAPSULE (CYMBALTA) PO SCH (20:27)
[2022-04-25] MEDS: PRAZOSIN 1 MG CAP PO SCH (20:30)
[2022-04-25] MEDS: CLOTRIMAZOLE 1% TOPICAL CREAM 30GM TOP SCH (20:35)
[2022-04-25] MEDS ORDERED: SODIUM CHLORIDE 0.9% INJ 10 ML SYR IV PRN (21:40)
[2022-04-25] MEDS: SODIUM CHLORIDE 0.9% INJ 10 ML SYR IV SCH (21:51)
[2022-04-26 00:09] VITALS: BP 112/62
[2022-04-26] MEDS: LR 1,000 ML IV SCH ×3 (00:18→20:37)
[2022-04-26] MEDS: PIPERACILLIN/TAZOBACTAM SOD 4.5 GM in D5W MINI-BAG PLUS 50 ML IV SCH ×4 (03:27→20:33)
[2022-04-26 04:13] VITALS: BP 110/52
[2022-04-26] MEDS: ACETAMINOPHEN 500 MG TAB PO PRN (05:37)
[2022-04-26 05:49] LABS: HEMOGLOBIN 11.9 g/dl (12.0-15.5); MEAN CORPUSCULAR HEMOGLOBIN 29.5 pg (27.0-33.0); MEAN CORPUSCULAR HGB CONC 33.1 g/dl (32.0-36.5); MEAN CORPUSCULAR VOLUME 89.3 fl (80.0-96.0); PLATELET COUNT, AUTOMATED 110 10^3/uL (150-450); RED BLOOD COUNT 4.03 10^6/uL (4.00-5.40); WHITE BLOOD COUNT 20.7 10^3/uL (4.0-10.0)
[2022-04-26 06:11] LABS: BLOOD UREA NITROGEN 7 MG/DL (9-23); CALCIUM LEVEL 7.5 MG/DL (8.5-10.1); CARBON DIOXIDE LEVEL 27 MMOL/L (20-31); CHLORIDE LEVEL 100 MMOL/L (98-107); CREATININE FOR GFR 0.68 MG/DL (0.55-1.30); GLOMERULAR FILTRATION RATE > 60.0 (>51); GLUCOSE, FASTING 128 MG/DL (60-100); POTASSIUM SERUM 3.1 MMOL/L (3.5-5.1); SODIUM LEVEL 136 MMOL/L (136-145)
[2022-04-26] MEDS ORDERED: KCL 10MEQ/100ML SWI (KRUN) 10 MEQ in IV 1 EA IV ONE (06:30)
[2022-04-26] MEDS ORDERED: POTASSIUM CHLORIDE 10MEQ SR TABLET PO ONE ×3 (06:30→16:00)
[2022-04-26] MEDS: INSULIN LISPRO (NovoLOG) PER UNIT SC SCH ×5 (07:30→20:49)
[2022-04-26] MEDS ORDERED: MAG SULF 1GM/100ML (MAG RUN) 1 GM in IV 1 EA IV ONE (08:00)
[2022-04-26] MEDS ORDERED: KCL 10MEQ/100ML SWI (KRUN) 10 MEQ in IV 1 EA IV SCH (08:00)
[2022-04-26] MEDS: DULoxetine 30MG CAPSULE (CYMBALTA) PO SCH ×2 (09:09→20:31)
[2022-04-26] MEDS ORDERED: LOPERAMIDE 2 MG CAPLET PO PRN (09:10)
[2022-04-26] MEDS: PANTOPRAZOLE 40MG TAB (PROTONIX) PO SCH (09:10)
[2022-04-26 09:12] VITALS: BP 109/61
[2022-04-26] MEDS: CLOTRIMAZOLE 1% TOPICAL CREAM 30GM TOP SCH ×2 (09:14→20:33)
[2022-04-26] MEDS: PREGABALIN 75 MG CAP(LYRICA) PO SCH ×2 (11:01→20:32)
[2022-04-26 13:39] LABS: BLOOD UREA NITROGEN 8 MG/DL (9-23); CALCIUM LEVEL 7.7 MG/DL (8.5-10.1); CARBON DIOXIDE LEVEL 27 MMOL/L (20-31); CHLORIDE LEVEL 101 MMOL/L (98-107); CREATININE FOR GFR 0.68 MG/DL (0.55-1.30); GLOMERULAR FILTRATION RATE > 60.0 (>51); GLUCOSE, FASTING 147 MG/DL (60-100); POTASSIUM SERUM 3.1 MMOL/L (3.5-5.1); SODIUM LEVEL 137 MMOL/L (136-145)
[2022-04-26 15:40] VITALS: BP 121/56
[2022-04-26] MEDS: RIVAROXABAN 10MG TAB (XARELTO) PO SCH (18:12)
[2022-04-26] MEDS: METOPROLOL SUCC (TopROL XL) 50MG **XL** TAB PO SCH (20:30)
[2022-04-26] MEDS: traZODone 50 MG TAB PO SCH (20:31)
[2022-04-26] MEDS: ROSUVASTATIN 10 MG TAB (CRESTOR) PO SCH (20:31)
[2022-04-26] MEDS: PRAZOSIN 1 MG CAP PO SCH (20:32)
[2022-04-26] MEDS: TOPIRAMATE (TopAMAX) 100 MG TAB PO SCH (20:32)
[2022-04-26] MEDS: FAMOTIDINE 20 MG TAB PO SCH (20:32)
[2022-04-26 20:38] VITALS: BP 134/72
[2022-04-26 22:00] VITALS: BP 151/83
[2022-04-27] MEDS: PIPERACILLIN/TAZOBACTAM SOD 4.5 GM in D5W MINI-BAG PLUS 50 ML IV SCH ×2 (03:00→09:28)
[2022-04-27 06:00] VITALS: BP 149/82
[2022-04-27 06:55] LABS: HEMATOCRIT 35.8 % (36.0-47.0); HEMOGLOBIN 11.6 g/dl (12.0-15.5); MEAN CORPUSCULAR HEMOGLOBIN 29.3 pg (27.0-33.0); MEAN CORPUSCULAR HGB CONC 32.4 g/dl (32.0-36.5); MEAN CORPUSCULAR VOLUME 90.4 fl (80.0-96.0); PLATELET COUNT, AUTOMATED 112 10^3/uL (150-450); RED BLOOD COUNT 3.96 10^6/uL (4.00-5.40); WHITE BLOOD COUNT 11.9 10^3/uL (4.0-10.0)
[2022-04-27 07:22] LABS: MAGNESIUM LEVEL 1.8 MG/DL (1.8-2.4)
[2022-04-27 07:23] LABS: BLOOD UREA NITROGEN 9 MG/DL (9-23); CARBON DIOXIDE LEVEL 25 MMOL/L (20-31); CHLORIDE LEVEL 103 MMOL/L (98-107); CREATININE FOR GFR 0.67 MG/DL (0.55-1.30); GLOMERULAR FILTRATION RATE > 60.0 (>51); GLUCOSE, FASTING 121 MG/DL (60-100); POTASSIUM SERUM 3.7 MMOL/L (3.5-5.1); SODIUM LEVEL 137 MMOL/L (136-145)
[2022-04-27] MEDS: INSULIN LISPRO (NovoLOG) PER UNIT SC SCH ×2 (07:30→12:00)
[2022-04-27 07:32] LABS: ATYPICAL LYMPH 2 % (0-5); LYMPHOCYTES 10 % (16-44); METAMYELOCYTES 3 % (0-0); MYELOCYTES 2 % (0-0); NEUTROPHILS 71 % (28-66)
[2022-04-27 07:38] LABS: ANISOCYTOSIS 1+; PLATELET ESTIMATE DECREASED (NORMAL)
[2022-04-27] MEDS ORDERED: POTASSIUM CHLORIDE 10MEQ SR TABLET PO SCH (09:00)
[2022-04-27] MEDS ORDERED: CEFD300C41 PO (09:02)
[2022-04-27] MEDS ORDERED: FLUC200T4 PO (09:02)
[2022-04-27] MEDS: DULoxetine 30MG CAPSULE (CYMBALTA) PO SCH (09:24)
[2022-04-27 09:25] VITALS: BP 149/82
[2022-04-27] MEDS: PANTOPRAZOLE 40MG TAB (PROTONIX) PO SCH (09:25)
[2022-04-27] MEDS: PREGABALIN 75 MG CAP(LYRICA) PO SCH (09:25)
[2022-04-27] MEDS: SODIUM CHLORIDE 0.9% INJ 10 ML SYR IV SCH (09:26)
[2022-04-27] MEDS: CLOTRIMAZOLE 1% TOPICAL CREAM 30GM TOP SCH (09:29)
== END 2022-04-27 12:55 | disposition home or self-care (01) | DRG 641 ==
LOC: M ED 07:40 → M ED INP 13:08 → ENRESERV 13:46 → M ICU 14:54 → M MS5PR 04-26 22:04
PROVIDERS: ADMIT Internal Medicine; ATTEND Internal Medicine
DX: E87.6 Hypokalemia (principal); N39.0 Urinary tract infection, site not specified; E83.42 Hypomagnesemia; Z85.3 Personal history of malignant neoplasm of breast; Z92.3 Personal history of irradiation; Z92.21 Personal history of antineoplastic chemotherapy; I10 Essential (primary) hypertension; G43.909 Migraine, unspecified, not intractable, without status migrainosus; E78.5 Hyperlipidemia, unspecified; J45.909 Unspecified asthma, uncomplicated; I73.9 Peripheral vascular disease, unspecified; D69.6 Thrombocytopenia, unspecified; E86.0 Dehydration; F39 Unspecified mood [affective] disorder; K21.9 Gastro-esophageal reflux disease without esophagitis; E11.51 Type 2 diabetes mellitus with diabetic peripheral angiopathy without gangrene; B37.31 Acute candidiasis of vulva and vagina; Z79.84 Long term (current) use of oral hypoglycemic drugs; Z79.899 Other long term (current) drug therapy; Z88.8 Allergy status to other drugs, medicaments and biological substances; Z88.2 Allergy status to sulfonamides; Z88.5 Allergy status to narcotic agent; Z91.041 Radiographic dye allergy status; Z91.013 Allergy to seafood; Z91.018 Allergy to other foods; Z91.030 Bee allergy status

== ENCOUNTER 2022-05-22 12:15 | Inpatient (IN) | payer MEDICARE, OTHER ==
[~2022-05-22] VITALS: Ht 172.7 cm; Wt 120.9 kg
[~2022-05-22 12:15] MED LIST changes: +BENA25CA4 PO; +CEFD300C41 PO; +CLAR10CA3 PO; +FLUC100T3 PO; +FLUC200T4 PO; +FLUTISP; +MED REC COMMENT
[2022-05-22] MEDS ORDERED: SODIUM CHLORIDE 0.9% INJ 10 ML SYR IV PRN (12:50)
[2022-05-22 13:13] LABS: HEMATOCRIT 38.2 % (36.0-47.0); MEAN CORPUSCULAR HEMOGLOBIN 30.1 pg (27.0-33.0); MEAN CORPUSCULAR VOLUME 88.4 fl (80.0-96.0); PLATELET COUNT, AUTOMATED 272 10^3/uL (150-450); RED BLOOD COUNT 4.32 10^6/uL (4.00-5.40)
[2022-05-22] MEDS ORDERED: KCL 20MEQ IN 100ML SWI (KRUN) 20 MEQ in IV 1 EA IV ONE ×2 (13:35)
[2022-05-22 13:59] LABS: BILIRUBIN,DIRECT 0.1 MG/DL (<0.4); BILIRUBIN,TOTAL 0.4 MG/DL (0.3-1.2); CALCIUM LEVEL 8.3 MG/DL (8.5-10.1); CREATININE FOR GFR 1.84 MG/DL (0.55-1.30); GLOMERULAR FILTRATION RATE 30.9 (>51); POTASSIUM SERUM 2.5 MMOL/L (3.5-5.1); TOTAL PROTEIN 8.3 G/DL (5.7-8.2)
[2022-05-22 14:11] LABS: RSV AMPLIFICATION NEGATIVE (NEGATIVE)
[2022-05-22 14:28] LABS: ATYPICAL LYMPH 1 % (0-5); LYMPHOCYTES 36 % (16-44); METAMYELOCYTES 3 % (0-0); MONOCYTES 11 % (0-5); NEUTROPHILS 41 % (28-66); PLATELET ESTIMATE NORMAL (NORMAL)
[2022-05-22] MEDS ORDERED: ONDANSETRON 4MG 2ML VIAL As Ordered ONE (15:04)
[2022-05-22] MEDS: LR 1,000 ML IV SCH (15:38)
[2022-05-22] MEDS ORDERED: LABETALOL 100MG/20ML VIAL IV STA (15:40)
[2022-05-22 15:49] LABS: MAGNESIUM LEVEL 1.1 MG/DL (1.8-2.4)
[2022-05-22 16:31] VITALS: BP 103/61
[2022-05-22] MEDS: MAG SULF 1GM/100ML (MAG RUN) 1 GM in IV 1 EA IV SCH ×2 (17:03→18:13)
[2022-05-22] MEDS: KCL 20MEQ IN 100ML SWI (KRUN) 20 MEQ in IV 1 EA IV SCH ×6 (17:03→19:28)
[2022-05-22] MEDS ORDERED: HOME MED LIST COMPLETE! XX SCH (17:40)
[2022-05-22] MEDS: SCOPOLAMINE 1MG TRANSDERMAL PATCH TOP SCH (19:05)
[2022-05-22 20:00] VITALS: BP 122/64
[2022-05-22 20:45] LABS: CALCIUM LEVEL 8.5 MG/DL (8.5-10.1); CREATININE FOR GFR 1.89 MG/DL (0.55-1.30); POTASSIUM SERUM 3.2 MMOL/L (3.5-5.1)
[2022-05-22] MEDS: CLOTRIMAZOLE 1% VAG CR 45 GM TOP SCH (21:00)
[2022-05-22] MEDS ORDERED: PROCHLORPERAZINE 5MG TAB PO ONE (21:10)
[2022-05-22] MEDS ORDERED: PROCHLORPERAZINE 10MG 2ML VIAL IM ONE (21:45)
[2022-05-22] MEDS ORDERED: PROCHLORPERAZINE 10MG 2ML VIAL IV ONE (21:55)
[2022-05-22] MEDS: HEPARIN SOD (PORCINE) 5000UNITS/ML 1ML VIAL/SYRINGE SQ SCH (22:00)
[2022-05-23] VITALS: BP 112/54
[2022-05-23] MEDS: LR 1,000 ML IV SCH ×4 (04:40→19:40)
[2022-05-23 05:18] LABS: HEMATOCRIT 36.7 % (36.0-47.0); HEMOGLOBIN 12.2 g/dl (12.0-15.5); MEAN CORPUSCULAR HGB CONC 33.2 g/dl (32.0-36.5); MEAN CORPUSCULAR VOLUME 90.2 fl (80.0-96.0); PLATELET COUNT, AUTOMATED 268 10^3/uL (150-450); RED BLOOD COUNT 4.07 10^6/uL (4.00-5.40); WHITE BLOOD COUNT 16.7 10^3/uL (4.0-10.0)
[2022-05-23 05:45] LABS: CALCIUM LEVEL 8.4 MG/DL (8.5-10.1); CREATININE FOR GFR 1.79 MG/DL (0.55-1.30); GLOMERULAR FILTRATION RATE 31.9 (>51); MAGNESIUM LEVEL 1.8 MG/DL (1.8-2.4); POTASSIUM SERUM 3.1 MMOL/L (3.5-5.1)
[2022-05-23 05:49] LABS: LYMPHOCYTES 26 % (16-44); METAMYELOCYTES 1 % (0-0); MONOCYTES 21 % (0-5); MYELOCYTES 1 % (0-0); NEUTROPHILS 45 % (28-66)
[2022-05-23 05:50] LABS: ANISOCYTOSIS 2+; MICROCYTOSIS 1+
[2022-05-23 05:51] LABS: PLATELET ESTIMATE NORMAL (NORMAL)
[2022-05-23] MEDS ORDERED: LR 1,000 ML IV ONE ×3 (06:10→22:40)
[2022-05-23] MEDS: HEPARIN SOD (PORCINE) 5000UNITS/ML 1ML VIAL/SYRINGE SQ SCH ×3 (06:29→21:41)
[2022-05-23 07:45] VITALS: BP 112/52
[2022-05-23] MEDS: CLOTRIMAZOLE 1% VAG CR 45 GM TOP SCH ×2 (09:11→21:00)
[2022-05-23] MEDS ORDERED: ALBUTEROL 90 MCG/ACT 8GM HFA INHALER INH PRN (09:25)
[2022-05-23] MEDS ORDERED: ACETAMINOPHEN 500 MG TAB PO PRN (09:25)
[2022-05-23] MEDS ORDERED: FLUTICASONE PROP 0.05% NASAL SPRAY 16 GM (FLONASE) PRN (09:25)
[2022-05-23] MEDS ORDERED: MAG SULF 1GM/100ML (MAG RUN) 1 GM in IV 1 EA IV ONE (09:25)
[2022-05-23] MEDS ORDERED: SUMAtriptan SUCCINATE 25 MG TAB PO PRN (09:25)
[2022-05-23] MEDS ORDERED: IPRATROPIUM 0.5MG/ALBUTEROL 2.5MG INH SOL UD 3ML (DUONEB) INH PRN (09:25)
[2022-05-23] MEDS: PANTOPRAZOLE 40MG TAB (PROTONIX) PO SCH ×2 (10:36→21:43)
[2022-05-23] MEDS: DULoxetine 30MG CAPSULE (CYMBALTA) PO SCH ×2 (10:36→21:41)
[2022-05-23] MEDS: LORATADINE 10 MG TAB PO SCH (10:37)
[2022-05-23] MEDS: KCL 20MEQ IN 100ML SWI (KRUN) 20 MEQ in IV 1 EA IV SCH ×4 (10:43→12:15)
[2022-05-23] MEDS ORDERED: FLUCONAZOLE 50MG TABLET PO ONE (11:00)
[2022-05-23 11:30] VITALS: BP 117/57
[2022-05-23] MEDS: LOPERAMIDE 2 MG CAPLET PO PRN (14:08)
[2022-05-23 15:59] VITALS: BP 104/51
[2022-05-23] MEDS ORDERED: SODIUM CHLORIDE 0.9% INJ 10 ML SYR IV PRN (17:15)
[2022-05-23 20:00] VITALS: BP 100/55
[2022-05-23 21:40] VITALS: BP 137/60
[2022-05-23] MEDS: ROSUVASTATIN 10 MG TAB (CRESTOR) PO SCH (21:42)
[2022-05-23] MEDS: PRAZOSIN 1 MG CAP PO SCH (21:42)
[2022-05-23] MEDS: METOPROLOL SUCC (TopROL XL) 50MG **XL** TAB PO SCH (21:43)
[2022-05-23] MEDS: TOPIRAMATE (TopAMAX) 100 MG TAB PO SCH (21:47)
[2022-05-23 22:36] LABS: CREATININE FOR GFR 1.38 MG/DL (0.55-1.30); GLOMERULAR FILTRATION RATE 43.1 (>51); MAGNESIUM LEVEL 1.7 MG/DL (1.8-2.4); POTASSIUM SERUM 2.7 MMOL/L (3.5-5.1)
[2022-05-23] MEDS: KCL 10MEQ/100ML SWI (KRUN) 10 MEQ in IV 1 EA IV SCH (23:04)
[2022-05-23] MEDS: PREGABALIN 75 MG CAP(LYRICA) PO PRN ×2 (23:04→23:06)
[2022-05-24] VITALS (7 sets, daily range): BP systolic 104–123; BP diastolic 53–68
[2022-05-24] MEDS: traZODone 50 MG TAB PO SCH ×2 (00:56→21:12)
[2022-05-24] MEDS: KCL 10MEQ/100ML SWI (KRUN) 10 MEQ in IV 1 EA IV SCH (00:56)
[2022-05-24] MEDS: PROCHLORPERAZINE 5MG TAB PO PRN ×2 (00:56→08:29)
[2022-05-24] MEDS: CLOTRIMAZOLE 1% VAG CR 45 GM TOP SCH ×3 (01:10→21:11)
[2022-05-24] MEDS: LR 1,000 ML IV SCH ×3 (03:29→21:12)
[2022-05-24] MEDS: HEPARIN SOD (PORCINE) 5000UNITS/ML 1ML VIAL/SYRINGE SQ SCH ×3 (05:08→21:10)
[2022-05-24] MEDS ORDERED: MAG SULF 1GM/100ML (MAG RUN) 1 GM in IV 1 EA IV ONE (06:00)
[2022-05-24] MEDS: LOPERAMIDE 2 MG CAPLET PO PRN (06:17)
[2022-05-24 06:30] LABS: HEMATOCRIT 30.1 % (36.0-47.0); MEAN CORPUSCULAR HEMOGLOBIN 30.6 pg (27.0-33.0); MEAN CORPUSCULAR HGB CONC 33.2 g/dl (32.0-36.5); PLATELET COUNT, AUTOMATED 195 10^3/uL (150-450); RED BLOOD COUNT 3.27 10^6/uL (4.00-5.40); WHITE BLOOD COUNT 18.3 10^3/uL (4.0-10.0)
[2022-05-24 06:56] LABS: CALCIUM LEVEL 7.9 MG/DL (8.5-10.1); CREATININE FOR GFR 1.33 MG/DL (0.55-1.30); MAGNESIUM LEVEL 1.6 MG/DL (1.8-2.4); POTASSIUM SERUM 2.9 MMOL/L (3.5-5.1)
[2022-05-24] MEDS ORDERED: KCL 20MEQ IN 100ML SWI (KRUN) 20 MEQ in IV 1 EA IV ONE ×2 (07:00)
[2022-05-24] MEDS ORDERED: POTASSIUM CHLORIDE 10MEQ SR TABLET PO ONE ×2 (07:00→17:00)
[2022-05-24 07:08] LABS: ATYPICAL LYMPH 2 % (0-5); LYMPHOCYTES 11 % (16-44); METAMYELOCYTES 5 % (0-0); MONOCYTES 4 % (0-5); MYELOCYTES 2 % (0-0); NEUTROPHILS 68 % (28-66)
[2022-05-24 07:10] LABS: ANISOCYTOSIS 1+; PLATELET CLUMPS SMALL AMT; PLATELET ESTIMATE NORMAL (NORMAL); POLYCHROMASIA 1+
[2022-05-24 07:11] LABS: TEAR DROP CELLS 1+
[2022-05-24 07:14] LABS: TOXIC GRANULATION 1+
[2022-05-24] MEDS: DULoxetine 30MG CAPSULE (CYMBALTA) PO SCH ×2 (09:00→21:00)
[2022-05-24] MEDS: PANTOPRAZOLE 40MG TAB (PROTONIX) PO SCH ×2 (09:32→21:09)
[2022-05-24] MEDS: LORATADINE 10 MG TAB PO SCH (09:32)
[2022-05-24] MEDS: SODIUM CHLORIDE 0.9% INJ 10 ML SYR IV SCH (09:33)
[2022-05-24 10:04] LABS: C REACTIVE PROTEIN QUANTITATIV 2.6 MG/DL (<1.0)
[2022-05-24] MEDS: OLANZapine 5 MG TAB PO SCH (10:29)
[2022-05-24 15:21] LABS: HEMATOCRIT 30.9 % (36.0-47.0); HEMOGLOBIN 10.1 g/dl (12.0-15.5); MEAN CORPUSCULAR HEMOGLOBIN 30.5 pg (27.0-33.0); MEAN CORPUSCULAR HGB CONC 32.7 g/dl (32.0-36.5); MEAN CORPUSCULAR VOLUME 93.4 fl (80.0-96.0); PLATELET COUNT, AUTOMATED 179 10^3/uL (150-450); RED BLOOD COUNT 3.31 10^6/uL (4.00-5.40); WHITE BLOOD COUNT 20.8 10^3/uL (4.0-10.0)
[2022-05-24 15:39] LABS: CALCIUM LEVEL 8.1 MG/DL (8.5-10.1); CREATININE FOR GFR 1.21 MG/DL (0.55-1.30); GLOMERULAR FILTRATION RATE 50.1 (>51); POTASSIUM SERUM 3.2 MMOL/L (3.5-5.1)
[2022-05-24 16:20] LABS: LYMPHOCYTES 17 % (16-44); METAMYELOCYTES 4 % (0-0); MONOCYTES 5 % (0-5); MYELOCYTES 3 % (0-0); NEUTROPHILS 66 % (28-66)
[2022-05-24 16:21] LABS: PLATELET ESTIMATE NORMAL (NORMAL)
[2022-05-24] MEDS: MAG SULF 1GM/100ML (MAG RUN) 1 GM in IV 1 EA IV SCH ×2 (17:16→18:09)
[2022-05-24] MEDS ORDERED: KCL 10MEQ/100ML SWI (KRUN) 10 MEQ in IV 1 EA IV ONE (19:00)
[2022-05-24] MEDS ORDERED: traZODone 50 MG TAB PO SCH (21:00)
[2022-05-24] MEDS: METOPROLOL SUCC (TopROL XL) 50MG **XL** TAB PO SCH (21:00)
[2022-05-24] MEDS: PREGABALIN 75 MG CAP(LYRICA) PO PRN (21:10)
[2022-05-24] MEDS: PRAZOSIN 1 MG CAP PO SCH (21:11)
[2022-05-24] MEDS: TOPIRAMATE (TopAMAX) 100 MG TAB PO SCH (21:11)
[2022-05-24] MEDS: ROSUVASTATIN 10 MG TAB (CRESTOR) PO SCH (21:12)
[2022-05-25 03:52] VITALS: BP 112/57
[2022-05-25] MEDS: LOPERAMIDE 2 MG CAPLET PO PRN ×2 (04:22→08:12)
[2022-05-25] MEDS: HEPARIN SOD (PORCINE) 5000UNITS/ML 1ML VIAL/SYRINGE SQ SCH ×2 (05:18→14:00)
[2022-05-25] MEDS: LR 1,000 ML IV SCH (05:23)
[2022-05-25 06:19] LABS: MEAN CORPUSCULAR HEMOGLOBIN 30.3 pg (27.0-33.0); MEAN CORPUSCULAR HGB CONC 32.1 g/dl (32.0-36.5); MEAN CORPUSCULAR VOLUME 94.3 fl (80.0-96.0); PLATELET COUNT, AUTOMATED 155 10^3/uL (150-450); RED BLOOD COUNT 2.97 10^6/uL (4.00-5.40); WHITE BLOOD COUNT 18.1 10^3/uL (4.0-10.0)
[2022-05-25 06:55] LABS: LYMPHOCYTES 14 % (16-44); METAMYELOCYTES 4 % (0-0); MONOCYTES 5 % (0-5); MYELOCYTES 2 % (0-0); NEUTROPHILS 64 % (28-66)
[2022-05-25 06:56] LABS: ANISOCYTOSIS 1+; PLATELET ESTIMATE NORMAL (NORMAL); POLYCHROMASIA 1+
[2022-05-25 07:16] LABS: CALCIUM LEVEL 8.1 MG/DL (8.5-10.1); CREATININE FOR GFR 1.15 MG/DL (0.55-1.30); GLOMERULAR FILTRATION RATE 53.2 (>51); MAGNESIUM LEVEL 1.7 MG/DL (1.8-2.4); POTASSIUM SERUM 2.9 MMOL/L (3.5-5.1)
[2022-05-25 07:45] VITALS: BP 96/48
[2022-05-25 08:12] VITALS: BP 96/48
[2022-05-25] MEDS: OLANZapine 5 MG TAB PO SCH (08:12)
[2022-05-25] MEDS: PANTOPRAZOLE 40MG TAB (PROTONIX) PO SCH (08:12)
[2022-05-25] MEDS: LORATADINE 10 MG TAB PO SCH (08:12)
[2022-05-25] MEDS: DULoxetine 30MG CAPSULE (CYMBALTA) PO SCH (08:12)
[2022-05-25] MEDS: SCOPOLAMINE 1MG TRANSDERMAL PATCH TOP SCH (08:13)
[2022-05-25] MEDS: CLOTRIMAZOLE 1% VAG CR 45 GM TOP SCH (08:13)
[2022-05-25] MEDS ORDERED: MAG SULF 1GM/100ML (MAG RUN) 1 GM in IV 1 EA IV ONE (09:00)
[2022-05-25] MEDS ORDERED: NYSTATIN 100,000 UNITS/GM TOPICAL PWD 15GM TOP SCH (09:00)
[2022-05-25] MEDS ORDERED: POTASSIUM CHLORIDE 10MEQ SR TABLET PO ONE ×3 (09:00→14:40)
[2022-05-25] MEDS ORDERED: KCL 20MEQ IN 100ML SWI (KRUN) 20 MEQ in IV 1 EA IV ONE ×2 (10:00)
[2022-05-25] MEDS ORDERED: MAGN400T33 PO (10:47)
[2022-05-25] MEDS ORDERED: LOPE2CA PO (10:47)
[2022-05-25] MEDS ORDERED: GLUCAGON INJ 1MG VIAL SC PRN (11:45)
[2022-05-25] MEDS ORDERED: GLUCOSE 4GM CHEW TABLET PO PRN (11:45)
[2022-05-25] MEDS ORDERED: DEXTROSE 50% 50ML SYRINGE IV PRN (11:45)
[2022-05-25 11:47] VITALS: BP 117/61
[2022-05-25] MEDS ORDERED: INSULIN LISPRO (NovoLOG) PER UNIT SC SCH ×2 (12:00→21:00)
[2022-05-25] MEDS: SODIUM CHLORIDE 0.9% INJ 10 ML SYR IV SCH (13:02)
[2022-05-25 13:55] LABS: CALCIUM LEVEL 8.2 MG/DL (8.5-10.1); CREATININE FOR GFR 1.13 MG/DL (0.55-1.30); GLOMERULAR FILTRATION RATE 54.3 (>51)
[2022-05-25] MEDS ORDERED: K-TA10TA2 PO (14:38)
== END 2022-05-25 15:18 | disposition home health service (06) | DRG 394 ==
LOC: M ED 12:15 → M ED INP 14:45 → ENRESERV 15:03 → M PCU 16:08
PROVIDERS: ADMIT Internal Medicine; ATTEND Internal Medicine
DX: K52.1 Toxic gastroenteritis and colitis (principal); N17.9 Acute kidney failure, unspecified; E87.20 Acidosis, unspecified; Z68.41 Body mass index [BMI] 40.0-44.9, adult; C50.919 Malignant neoplasm of unspecified site of unspecified female breast; I10 Essential (primary) hypertension; G43.909 Migraine, unspecified, not intractable, without status migrainosus; E78.5 Hyperlipidemia, unspecified; J45.909 Unspecified asthma, uncomplicated; I73.9 Peripheral vascular disease, unspecified; M79.7 Fibromyalgia; F32.A Depression, unspecified; F41.9 Anxiety disorder, unspecified; E87.6 Hypokalemia; E83.42 Hypomagnesemia; B37.31 Acute candidiasis of vulva and vagina; E86.0 Dehydration; T45.1X5A Adverse effect of antineoplastic and immunosuppressive drugs, initial encounter; E66.9 Obesity, unspecified; G47.00 Insomnia, unspecified; R26.89 Other abnormalities of gait and mobility; Z90.79 Acquired absence of other genital organ(s); Z90.49 Acquired absence of other specified parts of digestive tract; Z20.822 Contact with and (suspected) exposure to COVID-19; Z87.891 Personal history of nicotine dependence; Z79.84 Long term (current) use of oral hypoglycemic drugs; Z79.899 Other long term (current) drug therapy; Z88.2 Allergy status to sulfonamides; Z88.5 Allergy status to narcotic agent; Z88.8 Allergy status to other drugs, medicaments and biological substances; Z92.3 Personal history of irradiation; Z91.013 Allergy to seafood; Z91.041 Radiographic dye allergy status; Z91.018 Allergy to other foods; Z92.21 Personal history of antineoplastic chemotherapy

== ENCOUNTER 2022-05-29 15:12 | Inpatient (IN) | payer MEDICARE, OTHER ==
[~2022-05-29] VITALS: Ht 177.8 cm; Wt 125.4 kg
[~2022-05-29 15:12] MED LIST changes: +LOPE2CA PO; +MAGN400T33 PO; +SCOPOLAMINE 1MG TRANSDERMAL PATCH TOP SCH
[2022-05-29 15:59] LABS: BASO # 0.1 10^3/uL (0.0-0.2); BASO % 0.5 % (0.0-1.0); HEMOGLOBIN 10.5 g/dl (12.0-15.5); LYMPH # 2.7 10^3/uL (1.5-5.0); LYMPH % 22.3 % (24.0-44.0); MEAN CORPUSCULAR HEMOGLOBIN 30.7 pg (27.0-33.0); MEAN CORPUSCULAR HGB CONC 33.9 g/dl (32.0-36.5); MEAN CORPUSCULAR VOLUME 90.6 fl (80.0-96.0); MONO # 0.9 10^3/uL (0.0-0.8); MONO % 7.5 % (2.0-8.0); NEUTROPHILS # 8.1 10^3/uL (1.5-8.5); NEUTROPHILS % 67.4 % (36.0-66.0); PLATELET COUNT, AUTOMATED 105 10^3/uL (150-450); RED BLOOD COUNT 3.42 10^6/uL (4.00-5.40)
[2022-05-29] MEDS ORDERED: NS 1,000 ML IV ONE (16:15)
[2022-05-29 16:44] LABS: CREATININE FOR GFR 1.05 MG/DL (0.55-1.30); GLOMERULAR FILTRATION RATE 59.1 (>51); POTASSIUM SERUM 2.8 MMOL/L (3.5-5.1)
[2022-05-29 17:35] LABS: RSV AMPLIFICATION NEGATIVE (NEGATIVE)
[2022-05-29] MEDS ORDERED: MAG SULF 1GM/100ML (MAG RUN) 1 GM in IV 1 EA IV ONE (17:55)
[2022-05-29] MEDS ORDERED: POTASSIUM CHLORIDE 10MEQ SR TABLET PO ONE (18:20)
[2022-05-29] MEDS ORDERED: GLUCOSE 4GM CHEW TABLET PO PRN (19:05)
[2022-05-29] MEDS ORDERED: GLUCAGON INJ 1MG VIAL SC PRN (19:05)
[2022-05-29] MEDS ORDERED: DEXTROSE 50% 50ML SYRINGE IV PRN (19:05)
[2022-05-29 19:24] LABS: ALBUMIN 3.3 G/DL (3.2-5.2)
[2022-05-29] MEDS ORDERED: LYRI150C PO (19:30)
[2022-05-29] MEDS ORDERED: FAMO1TAB11 PO (19:30)
[2022-05-29] MEDS ORDERED: MAGN400T2 PO (19:30)
[2022-05-29] MEDS ORDERED: AMLO1TAB24 PO (19:30)
[2022-05-29] MEDS ORDERED: POTA10CA33 PO (19:30)
[2022-05-29] MEDS ORDERED: LOPE2CAP PO (19:30)
[2022-05-29] MEDS ORDERED: TRAN1DIS4 TOP (19:31)
[2022-05-29] MEDS ORDERED: HOME MED LIST COMPLETE! XX SCH (19:35)
[2022-05-29] MEDS ORDERED: ACETAMINOPHEN 500 MG TAB PO PRN (19:40)
[2022-05-29] MEDS ORDERED: ALBUTEROL 90 MCG/ACT 8GM HFA INHALER INH PRN (19:40)
[2022-05-29] MEDS ORDERED: SUMAtriptan SUCCINATE 25 MG TAB PO PRN (19:40)
[2022-05-29] MEDS ORDERED: FLUTICASONE PROP 0.05% NASAL SPRAY 16 GM (FLONASE) PRN (19:40)
[2022-05-29] MEDS ORDERED: PREGABALIN 75 MG CAP(LYRICA) PO PRN (19:40)
[2022-05-29] MEDS ORDERED: ONDANSETRON 4MG ORAL DISINTEGRATING TAB PO PRN (19:40)
[2022-05-29] MEDS ORDERED: ENOXAPARIN 40MG/0.4ML SYRINGE (J1650 PER 10MG) SC SCH (21:00)
[2022-05-29 22:05] VITALS: BP 138/66
[2022-05-29 22:51] LABS: ALBUMIN 3.1 G/DL (3.2-5.2); BLOOD UREA NITROGEN 13 MG/DL (9-23); CALCIUM LEVEL 6.6 MG/DL (8.5-10.1); CARBON DIOXIDE LEVEL 26 MMOL/L (20-31); CHLORIDE LEVEL 100 MMOL/L (98-107); CREATININE FOR GFR 0.99 MG/DL (0.55-1.30); GLOMERULAR FILTRATION RATE > 60.0 (>51); GLUCOSE, FASTING 135 MG/DL (60-100); MAGNESIUM LEVEL 0.8 MG/DL (1.8-2.4); PHOSPHORUS LEVEL 3.3 MG/DL (2.5-4.9); SODIUM LEVEL 137 MMOL/L (136-145)
[2022-05-29] MEDS: INSULIN LISPRO (NovoLOG) PER UNIT SC SCH (22:59)
[2022-05-29 23:00] VITALS: BP 138/66; PULSE 97
[2022-05-29] MEDS: traZODone 50 MG TAB PO SCH (23:39)
[2022-05-29] MEDS: PRAZOSIN 1 MG CAP PO SCH (23:41)
[2022-05-29 23:42] VITALS: BP 116/60
[2022-05-29] MEDS: PREGABALIN 75 MG CAP(LYRICA) PO SCH (23:42)
[2022-05-29] MEDS: ROSUVASTATIN 10 MG TAB (CRESTOR) PO SCH (23:42)
[2022-05-29] MEDS: PANTOPRAZOLE 40MG TAB (PROTONIX) PO SCH (23:42)
[2022-05-29] MEDS: METOPROLOL SUCC (TopROL XL) 50MG **XL** TAB PO SCH (23:43)
[2022-05-29] MEDS: MAG SULF 1GM/100ML (MAG RUN) 1 GM in IV 1 EA IV SCH (23:43)
[2022-05-29] MEDS: FAMOTIDINE 20 MG TAB PO SCH (23:43)
[2022-05-29] MEDS: TOPIRAMATE (TopAMAX) 100 MG TAB PO SCH (23:44)
[2022-05-30] MEDS: MAG SULF 1GM/100ML (MAG RUN) 1 GM in IV 1 EA IV SCH ×4 (00:45→17:20)
[2022-05-30] MEDS: PRAZOSIN 1 MG CAP PO SCH ×2 (01:45→23:54)
[2022-05-30] MEDS: FAMOTIDINE 20 MG TAB PO SCH ×3 (01:45→23:54)
[2022-05-30] MEDS: traZODone 50 MG TAB PO SCH ×2 (01:45→23:54)
[2022-05-30] MEDS: ROSUVASTATIN 10 MG TAB (CRESTOR) PO SCH ×2 (01:45→23:54)
[2022-05-30] MEDS: PREGABALIN 75 MG CAP(LYRICA) PO SCH ×2 (01:45→23:54)
[2022-05-30] MEDS: PANTOPRAZOLE 40MG TAB (PROTONIX) PO SCH ×3 (01:46→23:55)
[2022-05-30] MEDS: METOPROLOL SUCC (TopROL XL) 50MG **XL** TAB PO SCH ×2 (01:46→23:55)
[2022-05-30] MEDS: TOPIRAMATE (TopAMAX) 100 MG TAB PO SCH ×2 (01:46→23:55)
[2022-05-30] MEDS: KCL 20MEQ IN 100ML SWI (KRUN) 20 MEQ in IV 1 EA IV SCH ×8 (03:02→20:50)
[2022-05-30] MEDS ORDERED: MAG SULF 1GM/100ML (MAG RUN) 1 GM in IV 1 EA IV SCH (03:15)
[2022-05-30 04:01] LABS: HEMATOCRIT 30.3 % (36.0-47.0); HEMOGLOBIN 10.1 g/dl (12.0-15.5); MEAN CORPUSCULAR HEMOGLOBIN 30.2 pg (27.0-33.0); MEAN CORPUSCULAR HGB CONC 33.3 g/dl (32.0-36.5); MEAN CORPUSCULAR VOLUME 90.7 fl (80.0-96.0); PLATELET COUNT, AUTOMATED 105 10^3/uL (150-450); RED BLOOD COUNT 3.34 10^6/uL (4.00-5.40); WHITE BLOOD COUNT 13.6 10^3/uL (4.0-10.0)
[2022-05-30 04:24] LABS: BLOOD UREA NITROGEN 14 MG/DL (9-23); CALCIUM LEVEL 6.8 MG/DL (8.5-10.1); CARBON DIOXIDE LEVEL 26 MMOL/L (20-31); CHLORIDE LEVEL 99 MMOL/L (98-107); CREATININE FOR GFR 0.94 MG/DL (0.55-1.30); GLOMERULAR FILTRATION RATE > 60.0 (>51); GLUCOSE, FASTING 121 MG/DL (60-100); MAGNESIUM LEVEL 1.6 MG/DL (1.8-2.4); PHOSPHORUS LEVEL 3.9 MG/DL (2.5-4.9); SODIUM LEVEL 137 MMOL/L (136-145)
[2022-05-30 04:57] VITALS: BP 124/70
[2022-05-30] MEDS ORDERED: MAG SULF 1GM/100ML (MAG RUN) 1 GM in IV 1 EA IV ONE (06:00)
[2022-05-30] MEDS: INSULIN LISPRO (NovoLOG) PER UNIT SC SCH ×5 (07:30→21:00)
[2022-05-30 07:48] LABS: POTASSIUM SERUM 3.3 MMOL/L (3.5-5.1)
[2022-05-30 07:53] VITALS: BP 127/67
[2022-05-30] MEDS ORDERED: MAGNESIUM OXIDE 400MG TAB (MAG-OX) PO ONE (08:00)
[2022-05-30] MEDS ORDERED: POTASSIUM CHLORIDE 10MEQ SR TABLET PO ONE ×2 (08:00→15:00)
[2022-05-30] MEDS: SODIUM CHLORIDE 0.9% INJ 10 ML SYR IV SCH (08:47)
[2022-05-30 08:50] LABS: PTH INTACT 215.6 PG/ML (18.5-88.0)
[2022-05-30] MEDS: amLODIPine 5 MG TAB PO SCH (08:50)
[2022-05-30] MEDS: DULoxetine 30MG CAPSULE (CYMBALTA) PO SCH (08:51)
[2022-05-30] MEDS: LORATADINE 10 MG TAB PO SCH (08:52)
[2022-05-30] MEDS: NYSTATIN 100,000 UNITS/GM TOPICAL PWD 15GM TOP SCH (08:52)
[2022-05-30 08:54] LABS: TOTAL 25(OH) VITAMIN D 9.4 NG/ML (20.0-100.0)
[2022-05-30] MEDS ORDERED: VITAMIN D 50,000 UNITS CAPSULE (ERGOCALCIFEROL 1.25MG) PO SCH (09:00)
[2022-05-30] MEDS: METAMUCIL (PSYLLIUM) PACKET PO SCH (09:00)
[2022-05-30] MEDS ORDERED: CALCIUM GLUCONATE 1,000 MG in D5W MINI-BAG PLUS 100 ML IV ONE (09:00)
[2022-05-30 09:51] LABS: ALBUMIN 3.2 G/DL (3.2-5.2); BILIRUBIN,DIRECT 0.1 MG/DL (<0.4); BILIRUBIN,TOTAL 0.4 MG/DL (0.3-1.2)
[2022-05-30] MEDS: RIVAROXABAN 10MG TAB (XARELTO) PO SCH (09:56)
[2022-05-30 12:32] VITALS: BP 123/60
[2022-05-30 13:16] LABS: APPEARANCE, URINE MANUAL CLEAR (CLEAR)
[2022-05-30 13:17] LABS: COLOR, URINE MANUAL YELLOW (YELLOW)
[2022-05-30 13:18] LABS: GLUCOSE, URINE (UA) MANUAL 1+(100 MG/DL) mg/dL (NEGATIVE); KETONE, URINE MANUAL NEGATIVE (NEGATIVE); PROTEIN, URINE MANUAL NEGATIVE (NEGATIVE); SPECIFIC GRAVITY,URINE MANUAL 1.025 (1.002-1.035); UROBILINOGEN, URINE MANUAL NORMAL (NORMAL)
[2022-05-30 13:19] LABS: BILIRUBIN, URINE MANUAL NEGATIVE (NEGATIVE); BLOOD URINE MANUAL TRACE (NEGATIVE); LEUKOCYTE ESTERASE, URINE MAN TRACE (NEGATIVE); NITRITE, URINE MANUAL NEGATIVE (NEGATIVE)
[2022-05-30 14:25] LABS: BACTERIA, URINE MOD AMOUNT; MUCUS, URINE MOD AMOUNT (NEGATIVE); RBC, URINE 0-1 /hpf (0-3); SQUAMOUS EPITHELIAL CELL URINE LARGE AMOUNT /hpf (SMALL AMT); URIC ACID CRYSTALS, URINE MOD AMOUNT /hpf
[2022-05-30 14:46] LABS: ALBUMIN 3.2 G/DL (3.2-5.2); BLOOD UREA NITROGEN 14 MG/DL (9-23); CALCIUM LEVEL 7.6 MG/DL (8.5-10.1); CARBON DIOXIDE LEVEL 27 MMOL/L (20-31); CHLORIDE LEVEL 99 MMOL/L (98-107); CREATININE FOR GFR 0.83 MG/DL (0.55-1.30); GLOMERULAR FILTRATION RATE > 60.0 (>51); GLUCOSE, FASTING 118 MG/DL (60-100); MAGNESIUM LEVEL 1.6 MG/DL (1.8-2.4); PHOSPHORUS LEVEL 3.3 MG/DL (2.5-4.9); POTASSIUM SERUM 3.1 MMOL/L (3.5-5.1); SODIUM LEVEL 136 MMOL/L (136-145)
[2022-05-30] MEDS ORDERED: LOPERAMIDE 2 MG CAPLET PO PRN (14:55)
[2022-05-30 16:00] VITALS: BP 132/73
[2022-05-30] MEDS ORDERED: KCL 10MEQ/100ML SWI (KRUN) 10 MEQ in IV 1 EA IV SCH ×3 (17:00)
[2022-05-30] MEDS ORDERED: KCL 20MEQ IN 100ML SWI (KRUN) 20 MEQ in IV 1 EA IV SCH ×2 (20:25)
[2022-05-30] MEDS ORDERED: KCL 20MEQ IN 100ML SWI (KRUN) 20 MEQ in IV 1 EA IV ONE ×2 (20:25)
[2022-05-30 20:40] VITALS: BP 135/77
[2022-05-30] MEDS ORDERED: PROCHLORPERAZINE 10MG 2ML VIAL IV ONE ×2 (21:40)
[2022-05-30] MEDS: SODIUM CHLORIDE 0.9% INJ 10 ML SYR IV PRN (22:45)
[2022-05-30 23:25] LABS: BLOOD UREA NITROGEN 13 MG/DL (9-23); CALCIUM LEVEL 7.8 MG/DL (8.5-10.1); CARBON DIOXIDE LEVEL 26 MMOL/L (20-31); CHLORIDE LEVEL 104 MMOL/L (98-107); CREATININE FOR GFR 0.87 MG/DL (0.55-1.30); GLOMERULAR FILTRATION RATE > 60.0 (>51); GLUCOSE, FASTING 130 MG/DL (60-100); MAGNESIUM LEVEL 1.9 MG/DL (1.8-2.4); PHOSPHORUS LEVEL 3.1 MG/DL (2.5-4.9); POTASSIUM SERUM 3.5 MMOL/L (3.5-5.1); SODIUM LEVEL 137 MMOL/L (136-145)
[2022-05-30 23:39] VITALS: BP 124/63
[2022-05-31] MEDS: NYSTATIN 100,000 UNITS/GM TOPICAL PWD 15GM TOP SCH ×2 (01:38→09:02)
[2022-05-31 03:59] VITALS: BP 113/54
[2022-05-31] MEDS: SODIUM CHLORIDE 0.9% INJ 10 ML SYR IV PRN (05:59)
[2022-05-31 06:17] LABS: MEAN CORPUSCULAR HEMOGLOBIN 30.5 pg (27.0-33.0); MEAN CORPUSCULAR HGB CONC 33.3 g/dl (32.0-36.5); MEAN CORPUSCULAR VOLUME 91.5 fl (80.0-96.0); PLATELET COUNT, AUTOMATED 101 10^3/uL (150-450); RED BLOOD COUNT 3.28 10^6/uL (4.00-5.40); WHITE BLOOD COUNT 7.7 10^3/uL (4.0-10.0)
[2022-05-31 06:59] LABS: BLOOD UREA NITROGEN 13 MG/DL (9-23); CALCIUM LEVEL 7.9 MG/DL (8.5-10.1); CARBON DIOXIDE LEVEL 26 MMOL/L (20-31); CHLORIDE LEVEL 103 MMOL/L (98-107); CREATININE FOR GFR 0.42 MG/DL (0.55-1.30); GLOMERULAR FILTRATION RATE > 60.0 (>51); GLUCOSE, FASTING 113 MG/DL (60-100); MAGNESIUM LEVEL 1.8 MG/DL (1.8-2.4); PHOSPHORUS LEVEL 3.2 MG/DL (2.5-4.9); POTASSIUM SERUM 3.3 MMOL/L (3.5-5.1); SODIUM LEVEL 137 MMOL/L (136-145)
[2022-05-31] MEDS: INSULIN LISPRO (NovoLOG) PER UNIT SC SCH ×2 (07:30→12:00)
[2022-05-31] MEDS ORDERED: CALCIUM CARB SUSP 1250MG/5ML UNIT DOSE CUP PO SCH (08:00)
[2022-05-31] MEDS ORDERED: MAGNESIUM OXIDE 400MG TAB (MAG-OX) PO ONE (08:10)
[2022-05-31 08:22] VITALS: BP 127/69
[2022-05-31] MEDS ORDERED: CALC500C16 PO (08:53)
[2022-05-31] MEDS ORDERED: DRIS50003 PO (08:53)
[2022-05-31] MEDS: POTASSIUM CHLORIDE 10MEQ SR TABLET PO SCH ×2 (08:59→10:10)
[2022-05-31] MEDS: DULoxetine 30MG CAPSULE (CYMBALTA) PO SCH (08:59)
[2022-05-31] MEDS: METAMUCIL (PSYLLIUM) PACKET PO SCH (09:00)
[2022-05-31 09:01] VITALS: BP 127/69
[2022-05-31] MEDS: amLODIPine 5 MG TAB PO SCH (09:01)
[2022-05-31] MEDS: FAMOTIDINE 20 MG TAB PO SCH (09:01)
[2022-05-31] MEDS: LORATADINE 10 MG TAB PO SCH (09:01)
[2022-05-31] MEDS: PANTOPRAZOLE 40MG TAB (PROTONIX) PO SCH (09:01)
[2022-05-31] MEDS: RIVAROXABAN 10MG TAB (XARELTO) PO SCH (09:01)
[2022-05-31] MEDS: SODIUM CHLORIDE 0.9% INJ 10 ML SYR IV SCH (09:02)
== END 2022-05-31 12:59 | disposition home or self-care (01) | DRG 641 ==
LOC: M ED 15:12 → EDBD 15:12 → M ED INP 18:15 → M PCU 22:05
PROVIDERS: ADMIT Internal Medicine; ATTEND Internal Medicine
DX: E87.8 Other disorders of electrolyte and fluid balance, not elsewhere classified (principal); C50.912 Malignant neoplasm of unspecified site of left female breast; Z92.3 Personal history of irradiation; I10 Essential (primary) hypertension; E78.5 Hyperlipidemia, unspecified; I73.9 Peripheral vascular disease, unspecified; M79.7 Fibromyalgia; F32.A Depression, unspecified; F41.9 Anxiety disorder, unspecified; R21 Rash and other nonspecific skin eruption; R26.9 Unspecified abnormalities of gait and mobility; B37.31 Acute candidiasis of vulva and vagina; D64.9 Anemia, unspecified; G47.00 Insomnia, unspecified; K21.9 Gastro-esophageal reflux disease without esophagitis; E83.51 Hypocalcemia; J45.909 Unspecified asthma, uncomplicated; G62.0 Drug-induced polyneuropathy; D72.829 Elevated white blood cell count, unspecified; Z79.899 Other long term (current) drug therapy; Z79.84 Long term (current) use of oral hypoglycemic drugs; Z88.2 Allergy status to sulfonamides; Z88.8 Allergy status to other drugs, medicaments and biological substances; Z91.041 Radiographic dye allergy status; Z88.5 Allergy status to narcotic agent; Z91.013 Allergy to seafood; Z91.018 Allergy to other foods; Z90.49 Acquired absence of other specified parts of digestive tract; Z83.3 Family history of diabetes mellitus; Z90.79 Acquired absence of other genital organ(s)

== ENCOUNTER 2022-06-03 14:03 | Emergency (ER) | payer MEDICARE, OTHER ==
[~2022-06-03] VITALS: Ht 177.8 cm; Wt 125.5 kg
[2022-06-03 14:03] VITALS: BP 161/86
[~2022-06-03 14:03] MED LIST changes: +CALC500C16 PO; +DRIS50003 PO; +FAMO1TAB11 PO; +LOPE2CAP PO; +MAGN400T2 PO; +POTA10CA33 PO; -SCOPOLAMINE 1MG TRANSDERMAL PATCH TOP SCH; +TRAN1DIS4 TOP
[2022-06-04] MEDS ORDERED: PROC10TA5 PO (09:18)
[2022-06-04] MEDS ORDERED: POTA-151 PO (09:19)
== END 2022-06-03 14:58 | disposition left against medical advice (07) ==
LOC: M ED 14:03
DX: Z53.21 Procedure and treatment not carried out due to patient leaving prior to being seen by health care provider (principal)

== ENCOUNTER → 2022-06-06 | Outpatient (CLI) | payer MEDICARE, OTHER ==
[~2022-06-06] MED LIST changes: +POTA-151 PO
== END ==
LOC: M CARPUL 13:09
PROVIDERS: ATTEND Nurse Practitioner
DX: I42.7 Cardiomyopathy due to drug and external agent (principal); I36.0 Nonrheumatic tricuspid (valve) stenosis

== ENCOUNTER → 2022-06-10 | Outpatient (CLI) | payer MEDICARE, OTHER ==
[~2022-06-10] VITALS: Ht 177.8 cm; Wt 128.2 kg
[~2022-06-10] MED LIST changes: +CALC1TAB42 PO; +PREG25CA PO; +PREG50CA PO
[2022-06-10 14:21] VITALS: BP 156/84
== END ==
LOC: M PAL 14:16
PROVIDERS: ATTEND Nurse Practitioner Adult Health
DX: C50.912 Malignant neoplasm of unspecified site of left female breast (principal); Z51.5 Encounter for palliative care; Z92.21 Personal history of antineoplastic chemotherapy; G43.909 Migraine, unspecified, not intractable, without status migrainosus; J44.9 Chronic obstructive pulmonary disease, unspecified; K21.9 Gastro-esophageal reflux disease without esophagitis; I10 Essential (primary) hypertension; M79.7 Fibromyalgia; F10.21 Alcohol dependence, in remission; F32.A Depression, unspecified; F43.10 Post-traumatic stress disorder, unspecified; E11.9 Type 2 diabetes mellitus without complications; G62.9 Polyneuropathy, unspecified; Z90.49 Acquired absence of other specified parts of digestive tract; F17.210 Nicotine dependence, cigarettes, uncomplicated; G89.3 Neoplasm related pain (acute) (chronic); R11.2 Nausea with vomiting, unspecified; R19.7 Diarrhea, unspecified; Z92.3 Personal history of irradiation; E87.8 Other disorders of electrolyte and fluid balance, not elsewhere classified; Z88.1 Allergy status to other antibiotic agents; Z88.2 Allergy status to sulfonamides; Z88.5 Allergy status to narcotic agent; Z88.8 Allergy status to other drugs, medicaments and biological substances; Z91.041 Radiographic dye allergy status; Z91.018 Allergy to other foods; Z79.891 Long term (current) use of opiate analgesic

== ENCOUNTER 2022-06-15 09:11 | Emergency (ER) | payer MEDICARE, OTHER ==
[~2022-06-15] VITALS: Ht 177.8 cm; Wt 121.1 kg
[2022-06-15] MEDS ORDERED: NS 1,000 ML IV ONE (09:30)
[2022-06-15 09:53] LABS: HEMATOCRIT 27.9 % (36.0-47.0); MEAN CORPUSCULAR HEMOGLOBIN 31.1 pg (27.0-33.0); MEAN CORPUSCULAR HGB CONC 32.3 g/dl (32.0-36.5); MEAN CORPUSCULAR VOLUME 96.5 fl (80.0-96.0); PLATELET COUNT, AUTOMATED 155 10^3/uL (150-450); RED BLOOD COUNT 2.89 10^6/uL (4.00-5.40)
[2022-06-15 10:16] LABS: EOSINOPHILS 1 % (0-3); LYMPHOCYTES 12 % (16-44); METAMYELOCYTES 3 % (0-0); MYELOCYTES 2 % (0-0)
[2022-06-15 10:21] LABS: PLATELET ESTIMATE NORMAL (NORMAL)
[2022-06-15 10:22] LABS: ANISOCYTOSIS 2+; BLOOD UREA NITROGEN 16 MG/DL (9-23); CALCIUM LEVEL 8.3 MG/DL (8.5-10.1); CARBON DIOXIDE LEVEL 27 MMOL/L (20-31); CHLORIDE LEVEL 101 MMOL/L (98-107); CREATININE FOR GFR 0.65 MG/DL (0.55-1.30); GLOMERULAR FILTRATION RATE > 60.0 (>51); GLUCOSE, FASTING 131 MG/DL (60-100); MAGNESIUM LEVEL 1.2 MG/DL (1.8-2.4); POTASSIUM SERUM 3.3 MMOL/L (3.5-5.1); SODIUM LEVEL 136 MMOL/L (136-145); TEAR DROP CELLS 1+
[2022-06-15 10:24] LABS: NEUTROPHILS 68 % (28-66)
[2022-06-15] MEDS ORDERED: MAG SULF 1GM/100ML (MAG RUN) 1 GM in IV 1 EA IV ONE ×6 (11:50→13:05)
[2022-06-15] MEDS ORDERED: POTASSIUM CHLORIDE 10MEQ SR TABLET PO ONE (11:50)
[2022-06-15 15:34] VITALS: BP 146/81
== END 2022-06-15 15:42 | disposition home or self-care (01) ==
LOC: EDBD 09:11 → M ED 09:11
DX: E87.6 Hypokalemia (principal); E83.42 Hypomagnesemia; E11.9 Type 2 diabetes mellitus without complications; I10 Essential (primary) hypertension; G43.909 Migraine, unspecified, not intractable, without status migrainosus; K21.9 Gastro-esophageal reflux disease without esophagitis; F43.10 Post-traumatic stress disorder, unspecified; G47.33 Obstructive sleep apnea (adult) (pediatric); J44.9 Chronic obstructive pulmonary disease, unspecified; F17.200 Nicotine dependence, unspecified, uncomplicated; C50.919 Malignant neoplasm of unspecified site of unspecified female breast; Z88.2 Allergy status to sulfonamides; Z88.5 Allergy status to narcotic agent; Z91.013 Allergy to seafood; Z91.041 Radiographic dye allergy status; Z79.52 Long term (current) use of systemic steroids; Z79.811 Long term (current) use of aromatase inhibitors; Z79.899 Other long term (current) drug therapy; Z79.4 Long term (current) use of insulin
CPT/HCPCS: 80048; 83735; 85025; 96365; 96366; 99284; J3475

== ENCOUNTER → 2022-06-24 | Outpatient (CLI) | payer MEDICARE, OTHER ==
[~2022-06-24] MED LIST changes: +AMOX875T2 PO; +FLUC150T9 PO; +MECL-58 PO; +PREG200C PO
== END ==
LOC: M PAL 11:05
PROVIDERS: ATTEND Nurse Practitioner Family
DX: Z53.9 Procedure and treatment not carried out, unspecified reason (principal)

== ENCOUNTER → 2022-07-09 | Outpatient (CLI) | payer MEDICARE, OTHER | LOC: M PAL 07:26 | PROVIDERS: ATTEND Nurse Practitioner Adult Health | DX: C50.912 Malignant neoplasm of unspecified site of left female breast (principal); Z51.5 Encounter for palliative care; Z92.21 Personal history of antineoplastic chemotherapy; H66.93 Otitis media, unspecified, bilateral; R42 Dizziness and giddiness; R11.0 Nausea; F10.20 Alcohol dependence, uncomplicated; J44.9 Chronic obstructive pulmonary disease, unspecified; K21.9 Gastro-esophageal reflux disease without esophagitis; M79.7 Fibromyalgia; I10 Essential (primary) hypertension; E11.9 Type 2 diabetes mellitus without complications; F43.10 Post-traumatic stress disorder, unspecified; G62.9 Polyneuropathy, unspecified; Z79.899 Other long term (current) drug therapy; Z88.2 Allergy status to sulfonamides; Z88.5 Allergy status to narcotic agent; Z88.8 Allergy status to other drugs, medicaments and biological substances ==

== ENCOUNTER → 2022-07-30 | Outpatient (CLI) | payer MEDICARE, OTHER ==
[~2022-07-30] MED LIST changes: +CIPR7.5D5 OTIC; +FLUT50SP17; -FLUTISP
== END ==
LOC: M RAD 14:44
PROVIDERS: ATTEND Nurse Practitioner
DX: C50.919 Malignant neoplasm of unspecified site of unspecified female breast (principal); R05.9 Cough, unspecified

== ENCOUNTER 2022-08-10 13:47 | Inpatient (IN) | payer MEDICARE, OTHER ==
[~2022-08-10] VITALS: Ht 177.8 cm; Wt 124.0 kg
[~2022-08-10 13:47] MED LIST changes: +AMOX500C PO
[2022-08-10 14:43] LABS: VENOUS BASE EXCESS 0.4 (-2.0-2.0); VENOUS HCO3 25.6 MEQ/L (23.0-27.0); VENOUS O2 SATURATION 80.7 % (60.0-80.0); VENOUS PARTIAL PRESSURE CO2 43.6 mmHg (38.0-50.0); VENOUS PARTIAL PRESSURE O2 46.2 mmHg (30.0-50.0); VENOUS PH 7.386 UNITS (7.330-7.430); VENOUS STANDARD HCO3 24.5 MEQ/L; VENOUS TOTAL CO2 26.9 MEQ/L (24.0-28.0)
[2022-08-10 14:47] LABS: BASO % 0.2 % (0.0-1.0); EOS # 0.1 10^3/uL (0.0-0.5); EOS % 0.8 % (0.0-3.0); HEMATOCRIT 31.9 % (36.0-47.0); HEMOGLOBIN 10.5 g/dl (12.0-15.5); LYMPH # 2.5 10^3/uL (1.5-5.0); LYMPH % 28.5 % (24.0-44.0); MEAN CORPUSCULAR HEMOGLOBIN 36.3 pg (27.0-33.0); MEAN CORPUSCULAR HGB CONC 32.9 g/dl (32.0-36.5); MEAN CORPUSCULAR VOLUME 110.4 fl (80.0-96.0); MONO # 0.5 10^3/uL (0.0-0.8); MONO % 5.4 % (2.0-8.0); NEUTROPHILS # 5.6 10^3/uL (1.5-8.5); NEUTROPHILS % 64.4 % (36.0-66.0); PLATELET COUNT, AUTOMATED 280 10^3/uL (150-450); RED BLOOD COUNT 2.89 10^6/uL (4.00-5.40); WHITE BLOOD COUNT 8.8 10^3/uL (4.0-10.0)
[2022-08-10 14:58] LABS: INR 0.96
[2022-08-10 14:59] LABS: PARTIAL THROMBOPLASTIN TIME 29.2 SECONDS (24.8-34.2)
[2022-08-10 15:11] LABS: CPK CREATINE PHOSPHOKINASE 73 U/L (34-145); MB/CK RELATIVE INDEX 1.36 (< OR =4)
[2022-08-10 15:14] LABS: THYROID STIMULATING HORMONE 0.978 uIU/ML (0.55-4.78)
[2022-08-10 15:17] LABS: ALBUMIN 3.5 G/DL (3.2-5.2); ALKALINE PHOSPHATASE 86 U/L (46-116); ALT/SGPT 40 U/L (7.0-40); AST/SGOT 31 U/L (<34); BILIRUBIN,DIRECT < 0.1 MG/DL (<0.4); BILIRUBIN,TOTAL 0.2 MG/DL (0.3-1.2); BLOOD UREA NITROGEN 14 MG/DL (9-23); CALCIUM LEVEL 8.9 MG/DL (8.5-10.1); CARBON DIOXIDE LEVEL 26 MMOL/L (20-31); CHLORIDE LEVEL 109 MMOL/L (98-107); CREATININE FOR GFR 0.73 MG/DL (0.55-1.30); GLOMERULAR FILTRATION RATE > 60.0 (>51); GLUCOSE, FASTING 146 MG/DL (60-100); MAGNESIUM LEVEL 1.4 MG/DL (1.8-2.4); POTASSIUM SERUM 3.5 MMOL/L (3.5-5.1); SODIUM LEVEL 142 MMOL/L (136-145); TOTAL PROTEIN 7.5 G/DL (5.7-8.2)
[2022-08-10] MEDS ORDERED: MAG SULF 1GM/100ML (MAG RUN) 1 GM in IV 1 EA IV ONE (15:20)
[2022-08-10 16:32] LABS: CK-MB VALUE MASS < 1.0 NG/ML (<3.6)
[2022-08-10 16:33] LABS: CPK CREATINE PHOSPHOKINASE 71 U/L (34-145)
[2022-08-10] MEDS ORDERED: ONDANSETRON 4MG 2ML VIAL IV ONE (20:30)
[2022-08-10] MEDS ORDERED: ACETAMINOPHEN 1000MG 100ML IV BAG IV ONE (20:30)
[2022-08-10 20:35] LABS: D-DIMER QUANT 1631.3 ng/ml (<500)
[2022-08-10] MEDS ORDERED: LYRI200C PO (20:39)
[2022-08-10] MEDS ORDERED: HOME MED LIST COMPLETE! XX SCH (20:40)
[2022-08-10] MEDS ORDERED: PRAZOSIN 1 MG CAP PO SCH (21:00)
[2022-08-10] MEDS ORDERED: traZODone 50 MG TAB PO SCH (21:00)
[2022-08-10] MEDS ORDERED: TOPIRAMATE (TopAMAX) 100 MG TAB PO SCH (21:00)
[2022-08-10 21:20] VITALS: BP 127/72
[2022-08-10] MEDS ORDERED: ONDANSETRON 4MG ORAL DISINTEGRATING TAB PO PRN (21:35)
[2022-08-10] MEDS ORDERED: IPRATROPIUM 0.5MG/ALBUTEROL 2.5MG INH SOL UD 3ML (DUONEB) NEB PRN (21:35)
[2022-08-10] MEDS ORDERED: AMOX500C PO (22:26)
[2022-08-10] MEDS: PANTOPRAZOLE 40MG TAB (PROTONIX) PO SCH (23:24)
[2022-08-10] MEDS: FAMOTIDINE 20 MG TAB PO SCH (23:25)
[2022-08-10] MEDS: MAGNESIUM OXIDE 400MG TAB (MAG-OX) PO SCH (23:25)
[2022-08-10] MEDS: PREGABALIN 100 MG CAP (LYRICA) PO SCH (23:25)
[2022-08-10] MEDS: ENOXAPARIN 120MG/0.8ML SYRINGE SC SCH (23:27)
[2022-08-11] MEDS ORDERED: BENZONATATE 100MG CAPSULE PO PRN (02:05)
[2022-08-11] MEDS ORDERED: SODIUM CHLORIDE NASAL 0.65% SPRAY BTL (OCEAN) PRN (02:05)
[2022-08-11] MEDS: AMOXICILLIN 500 MG CAP PO SCH ×2 (03:33→08:50)
[2022-08-11] MEDS ORDERED: MAG SULF 1GM/100ML (MAG RUN) 1 GM in IV 1 EA IV ONE (04:00)
[2022-08-11] MEDS ORDERED: SODIUM CHLORIDE 0.9% INJ 10 ML SYR IV PRN (05:35)
[2022-08-11 06:00] VITALS: BP 125/76
[2022-08-11 06:21] LABS: ALBUMIN 3.3 G/DL (3.2-5.2); ALKALINE PHOSPHATASE 79 U/L (46-116); ALT/SGPT 38 U/L (7.0-40); AST/SGOT 28 U/L (<34); BILIRUBIN,TOTAL 0.2 MG/DL (0.3-1.2); BLOOD UREA NITROGEN 13 MG/DL (9-23); CALCIUM LEVEL 8.8 MG/DL (8.5-10.1); CARBON DIOXIDE LEVEL 25 MMOL/L (20-31); CHLORIDE LEVEL 105 MMOL/L (98-107); CREATININE FOR GFR 0.72 MG/DL (0.55-1.30); GLOMERULAR FILTRATION RATE > 60.0 (>51); GLUCOSE, FASTING 124 MG/DL (60-100); MAGNESIUM LEVEL 1.9 MG/DL (1.8-2.4); POTASSIUM SERUM 3.4 MMOL/L (3.5-5.1); SODIUM LEVEL 138 MMOL/L (136-145); TOTAL PROTEIN 7.4 G/DL (5.7-8.2)
[2022-08-11] MEDS ORDERED: POTASSIUM CHLORIDE 10MEQ SR TABLET PO ONE (07:30)
[2022-08-11] MEDS: FAMOTIDINE 20 MG TAB PO SCH (08:46)
[2022-08-11] MEDS: MAGNESIUM OXIDE 400MG TAB (MAG-OX) PO SCH (08:47)
[2022-08-11] MEDS: PREGABALIN 100 MG CAP (LYRICA) PO SCH (08:47)
[2022-08-11] MEDS: PANTOPRAZOLE 40MG TAB (PROTONIX) PO SCH (08:47)
[2022-08-11 08:48] VITALS: BP 125/71
[2022-08-11] MEDS: ENOXAPARIN 120MG/0.8ML SYRINGE SC SCH (08:50)
[2022-08-11] MEDS ORDERED: SODIUM CHLORIDE 0.9% INJ 10 ML SYR IV SCH (09:00)
[2022-08-11] MEDS ORDERED: amLODIPine 5 MG TAB PO SCH (09:00)
[2022-08-11] MEDS ORDERED: POTASSIUM CHLORIDE 10MEQ SR TABLET PO SCH (09:00)
[2022-08-11] MEDS ORDERED: SCOPOLAMINE 1MG TRANSDERMAL PATCH TOP SCH (09:00)
[2022-08-11] MEDS ORDERED: METOPROLOL SUCC (TopROL XL) 50MG **XL** TAB PO SCH (09:00)
[2022-08-11 12:39] VITALS: BP 127/70
[2022-08-11] MEDS ORDERED: ACETAMINOPHEN 500 MG TAB PO ONE (13:00)
[2022-08-11] MEDS ORDERED: MAGN400T2 PO (13:48)
== END 2022-08-11 15:08 | disposition home or self-care (01) | DRG 206 ==
LOC: EDBD 13:47 → M ED 13:47 → M ED INP 21:31 → M MSPAV 22:33
PROVIDERS: ADMIT Family Medicine; ATTEND Internal Medicine
DX: M94.0 Chondrocostal junction syndrome [Tietze] (principal); I10 Essential (primary) hypertension; E83.42 Hypomagnesemia; M79.7 Fibromyalgia; G47.00 Insomnia, unspecified; E78.5 Hyperlipidemia, unspecified; I73.9 Peripheral vascular disease, unspecified; E87.6 Hypokalemia; J45.909 Unspecified asthma, uncomplicated; K21.9 Gastro-esophageal reflux disease without esophagitis; F41.8 Other specified anxiety disorders; M54.9 Dorsalgia, unspecified; G43.909 Migraine, unspecified, not intractable, without status migrainosus; G89.29 Other chronic pain; Z79.2 Long term (current) use of antibiotics; Z79.899 Other long term (current) drug therapy; Z91.030 Bee allergy status; Z91.041 Radiographic dye allergy status; Z91.013 Allergy to seafood; Z91.018 Allergy to other foods; Z88.2 Allergy status to sulfonamides; Z88.5 Allergy status to narcotic agent; Z88.8 Allergy status to other drugs, medicaments and biological substances; Z90.49 Acquired absence of other specified parts of digestive tract; Z20.822 Contact with and (suspected) exposure to COVID-19; Z85.3 Personal history of malignant neoplasm of breast; Z83.3 Family history of diabetes mellitus

== ENCOUNTER → 2022-08-14 | Outpatient (CLI) | payer MEDICARE, OTHER ==
[~2022-08-14] VITALS: Ht 177.8 cm; Wt 123.8 kg
[~2022-08-14] MED LIST changes: +CLAR1TAB13 PO; +DESI25TA59 PO; +DIFL200T PO; +HYDR-643 PO; +LACT20EL PO; +LYRI200C PO; +MECL-86 PO; +NYST100085 TOP; +SLOWTAB2 PO
[2022-08-14 08:06] VITALS: BP 123/78
== END ==
LOC: M PAL 07:55
PROVIDERS: ATTEND Nurse Practitioner Adult Health
DX: C50.912 Malignant neoplasm of unspecified site of left female breast (principal); Z51.5 Encounter for palliative care; Z92.21 Personal history of antineoplastic chemotherapy; R05.9 Cough, unspecified; J45.909 Unspecified asthma, uncomplicated; Z79.51 Long term (current) use of inhaled steroids; M79.7 Fibromyalgia; G89.3 Neoplasm related pain (acute) (chronic); R11.2 Nausea with vomiting, unspecified; R19.7 Diarrhea, unspecified; Z79.891 Long term (current) use of opiate analgesic; Z79.899 Other long term (current) drug therapy; Z88.2 Allergy status to sulfonamides; Z88.5 Allergy status to narcotic agent; Z88.6 Allergy status to analgesic agent; Z91.030 Bee allergy status; Z91.013 Allergy to seafood; Z91.018 Allergy to other foods

== ENCOUNTER → 2022-09-04 | Outpatient (CLI) | payer MEDICARE, OTHER | LOC: M ONCR 13:35 | PROVIDERS: ATTEND Radiology Radiation Oncology | DX: C50.412 Malignant neoplasm of upper-outer quadrant of left female breast (principal); B37.89 Other sites of candidiasis; F17.210 Nicotine dependence, cigarettes, uncomplicated; Z79.899 Other long term (current) drug therapy; Z88.1 Allergy status to other antibiotic agents; Z88.2 Allergy status to sulfonamides; Z88.5 Allergy status to narcotic agent; Z88.6 Allergy status to analgesic agent; Z91.013 Allergy to seafood; Z91.030 Bee allergy status; Z91.041 Radiographic dye allergy status; Z91.018 Allergy to other foods; Z91.048 Other nonmedicinal substance allergy status; Z92.21 Personal history of antineoplastic chemotherapy; Z92.3 Personal history of irradiation ==

== ENCOUNTER → 2022-09-05 | Outpatient (CLI) | payer MEDICARE, OTHER | LOC: M CARPUL 12:16 | PROVIDERS: ATTEND Nurse Practitioner | DX: I42.7 Cardiomyopathy due to drug and external agent (principal) ==

== ENCOUNTER → 2022-09-11 | Outpatient (CLI) | payer MEDICARE, OTHER ==
[~2022-09-11] VITALS: Ht 177.8 cm; Wt 126.6 kg
[~2022-09-11] MED LIST changes: +SENN-186 PO
[2022-09-11 09:29] VITALS: BP 139/67
== END ==
LOC: M PAL 09:22
PROVIDERS: ATTEND Nurse Practitioner Adult Health
DX: C50.412 Malignant neoplasm of upper-outer quadrant of left female breast (principal); Z98.890 Other specified postprocedural states; Z92.3 Personal history of irradiation; Z92.21 Personal history of antineoplastic chemotherapy; Z51.5 Encounter for palliative care; G89.3 Neoplasm related pain (acute) (chronic); R11.2 Nausea with vomiting, unspecified; K59.00 Constipation, unspecified; R53.1 Weakness; R53.83 Other fatigue; F17.210 Nicotine dependence, cigarettes, uncomplicated; Z80.42 Family history of malignant neoplasm of prostate; Z80.8 Family history of malignant neoplasm of other organs or systems; Z90.721 Acquired absence of ovaries, unilateral; Z79.51 Long term (current) use of inhaled steroids; Z79.899 Other long term (current) drug therapy; Z88.2 Allergy status to sulfonamides; Z88.5 Allergy status to narcotic agent; Z88.8 Allergy status to other drugs, medicaments and biological substances; Z91.013 Allergy to seafood; Z91.018 Allergy to other foods; Z91.030 Bee allergy status; Z91.041 Radiographic dye allergy status

== ENCOUNTER 2022-09-30 18:21 | Inpatient (IN) | payer MEDICARE, OTHER ==
[~2022-09-30] VITALS: Ht 177.8 cm; Wt 127.3 kg
[~2022-09-30 18:21] MED LIST changes: -K-TA10TA2 PO; +POTA-165 PO; -POTA10CA33 PO; +POTA10CA60 PO
[2022-09-30] MEDS ORDERED: CILO50TA2 PO (18:37)
[2022-09-30] MEDS ORDERED: NS 1,000 ML IV ONE (19:50)
[2022-09-30 21:03] LABS: BASO # 0.1 10^3/uL (0.0-0.2); BASO % 0.3 % (0.0-1.0); EOS # 0.1 10^3/uL (0.0-0.5); HEMATOCRIT 34.7 % (36.0-47.0); HEMOGLOBIN 11.4 g/dl (12.0-15.5); LYMPH # 3.3 10^3/uL (1.5-5.0); MEAN CORPUSCULAR HEMOGLOBIN 34.1 pg (27.0-33.0); MEAN CORPUSCULAR HGB CONC 32.9 g/dl (32.0-36.5); MEAN CORPUSCULAR VOLUME 103.9 fl (80.0-96.0); MONO # 0.5 10^3/uL (0.0-0.8); MONO % 3.6 % (2.0-8.0); NEUTROPHILS # 10.4 10^3/uL (1.5-8.5); NEUTROPHILS % 71.3 % (36.0-66.0); PLATELET COUNT, AUTOMATED 333 10^3/uL (150-450); RED BLOOD COUNT 3.34 10^6/uL (4.00-5.40); WHITE BLOOD COUNT 14.5 10^3/uL (4.0-10.0)
[2022-09-30 21:41] LABS: BLOOD UREA NITROGEN 15 MG/DL (9-23); CALCIUM LEVEL 9.2 MG/DL (8.5-10.1); CARBON DIOXIDE LEVEL 26 MMOL/L (20-31); CHLORIDE LEVEL 101 MMOL/L (98-107); CREATININE FOR GFR 0.66 MG/DL (0.55-1.30); GLOMERULAR FILTRATION RATE > 60.0 (>51); GLUCOSE, FASTING 243 MG/DL (60-100); POTASSIUM SERUM 3.7 MMOL/L (3.5-5.1); SODIUM LEVEL 135 MMOL/L (136-145)
[2022-09-30] MEDS ORDERED: cefTRIAXone SOD 2 GM in D5W MINI-BAG PLUS 50 ML IV ONE (22:15)
[2022-10-01] MEDS ORDERED: LORA-930 PO (00:03)
[2022-10-01] MEDS ORDERED: IPRA0.00 INH (00:04)
[2022-10-01] MEDS ORDERED: NYST1POW9 TOP (00:04)
[2022-10-01] MEDS ORDERED: MECL-86 PO (00:04)
[2022-10-01] MEDS ORDERED: ALBU8.5H INH (00:04)
[2022-10-01] MEDS ORDERED: SFHIBU200 PO (00:04)
[2022-10-01] MEDS ORDERED: HYDR-3363 PO (00:04)
[2022-10-01] MEDS ORDERED: NYST100085 TOP (00:04)
[2022-10-01] MEDS ORDERED: HOME MED LIST COMPLETE! XX SCH (00:05)
[2022-10-01] MEDS ORDERED: ACETAMINOPHEN TAB 650MG DOSE (2X325MG) PO PRN (00:35)
[2022-10-01] MEDS ORDERED: ALBUTEROL 90 MCG/ACT 8GM HFA INHALER INH PRN (03:45)
[2022-10-01] MEDS ORDERED: IPRATROPIUM 0.5MG/ALBUTEROL 2.5MG INH SOL UD 3ML (DUONEB) INH PRN (03:45)
[2022-10-01] MEDS: traZODone 50 MG TAB PO SCH ×2 (04:37→20:29)
[2022-10-01] MEDS: PREGABALIN 100 MG CAP (LYRICA) PO SCH ×2 (04:38→20:28)
[2022-10-01] MEDS: FAMOTIDINE 20 MG TAB PO SCH ×2 (04:38→20:29)
[2022-10-01] MEDS: METOPROLOL SUCC (TopROL XL) 50MG **XL** TAB PO SCH ×2 (04:43→21:00)
[2022-10-01] MEDS: PRAZOSIN 1 MG CAP PO SCH ×2 (04:43→20:28)
[2022-10-01] MEDS: amLODIPine 5 MG TAB PO SCH ×2 (04:44→20:29)
[2022-10-01 05:21] LABS: MAGNESIUM LEVEL 1.5 MG/DL (1.8-2.4)
[2022-10-01] MEDS ORDERED: SCOPOLAMINE 1MG TRANSDERMAL PATCH TOP SCH (06:00)
[2022-10-01] MEDS: HEPARIN SOD (PORCINE) 5000UNITS/ML 1ML VIAL/SYRINGE SC SCH ×3 (06:22→22:00)
[2022-10-01 07:32] LABS: BASO # 0.1 10^3/uL (0.0-0.2); BASO % 0.4 % (0.0-1.0); EOS # 0.2 10^3/uL (0.0-0.5); EOS % 1.6 % (0.0-3.0); HEMATOCRIT 32.8 % (36.0-47.0); HEMOGLOBIN 10.8 g/dl (12.0-15.5); LYMPH # 2.5 10^3/uL (1.5-5.0); LYMPH % 20.5 % (24.0-44.0); MEAN CORPUSCULAR HEMOGLOBIN 34.3 pg (27.0-33.0); MEAN CORPUSCULAR HGB CONC 32.9 g/dl (32.0-36.5); MEAN CORPUSCULAR VOLUME 104.1 fl (80.0-96.0); MONO # 0.5 10^3/uL (0.0-0.8); MONO % 4.2 % (2.0-8.0); NEUTROPHILS # 8.8 10^3/uL (1.5-8.5); NEUTROPHILS % 72.2 % (36.0-66.0); PLATELET COUNT, AUTOMATED 267 10^3/uL (150-450); RED BLOOD COUNT 3.15 10^6/uL (4.00-5.40); WHITE BLOOD COUNT 12.2 10^3/uL (4.0-10.0)
[2022-10-01 08:04] LABS: BLOOD UREA NITROGEN 14 MG/DL (9-23); CALCIUM LEVEL 8.8 MG/DL (8.5-10.1); CARBON DIOXIDE LEVEL 24 MMOL/L (20-31); CHLORIDE LEVEL 103 MMOL/L (98-107); CREATININE FOR GFR 0.64 MG/DL (0.55-1.30); GLOMERULAR FILTRATION RATE > 60.0 (>51); GLUCOSE, FASTING 153 MG/DL (60-100); MAGNESIUM LEVEL 1.4 MG/DL (1.8-2.4); POTASSIUM SERUM 3.8 MMOL/L (3.5-5.1); SODIUM LEVEL 135 MMOL/L (136-145)
[2022-10-01 09:00] VITALS: BP 127/69; TEMP 97; O2SAT 94
[2022-10-01] MEDS ORDERED: SODIUM CHLORIDE 0.9% INJ 10 ML SYR IV SCH (09:00)
[2022-10-01] MEDS ORDERED: LACT20EL PO (09:17)
[2022-10-01] MEDS: PANTOPRAZOLE 40MG TAB (PROTONIX) PO SCH ×2 (10:22→20:28)
[2022-10-01] MEDS: LR 1,000 ML IV SCH ×2 (10:22→19:50)
[2022-10-01] MEDS ORDERED: POTASSIUM CHLORIDE 10MEQ SR TABLET PO ONE (10:35)
[2022-10-01] MEDS ORDERED: SODIUM CHLORIDE 0.9% INJ 10 ML SYR IV PRN (12:05)
[2022-10-01] MEDS: MAG SULF 1GM/100ML (MAG RUN) 1 GM in IV 1 EA IV SCH ×4 (12:17→15:54)
[2022-10-01] MEDS ORDERED: SUMAtriptan SUCCINATE 25 MG TAB PO PRN (14:25)
[2022-10-01 15:58] VITALS: BP 136/79; TEMP 97.2; O2SAT 96
[2022-10-01 19:19] VITALS: BP 136/64; TEMP 97.4; O2SAT 96
[2022-10-01] MEDS ORDERED: TOPIRAMATE (TopAMAX) 100 MG TAB PO SCH (21:00)
[2022-10-01 21:09] VITALS: BP 121/74; TEMP 97.2; O2SAT 95
[2022-10-02 05:10] VITALS: BP 123/72; TEMP 98.1; O2SAT 94
[2022-10-02] MEDS: HEPARIN SOD (PORCINE) 5000UNITS/ML 1ML VIAL/SYRINGE SC SCH (05:24)
[2022-10-02 07:19] LABS: BASO % 0.3 % (0.0-1.0); EOS # 0.2 10^3/uL (0.0-0.5); EOS % 1.9 % (0.0-3.0); HEMATOCRIT 33.4 % (36.0-47.0); HEMOGLOBIN 10.7 g/dl (12.0-15.5); LYMPH # 2.5 10^3/uL (1.5-5.0); LYMPH % 25.4 % (24.0-44.0); MEAN CORPUSCULAR HEMOGLOBIN 33.8 pg (27.0-33.0); MEAN CORPUSCULAR VOLUME 105.4 fl (80.0-96.0); MONO # 0.4 10^3/uL (0.0-0.8); MONO % 4.3 % (2.0-8.0); NEUTROPHILS # 6.5 10^3/uL (1.5-8.5); PLATELET COUNT, AUTOMATED 269 10^3/uL (150-450); RED BLOOD COUNT 3.17 10^6/uL (4.00-5.40); WHITE BLOOD COUNT 9.7 10^3/uL (4.0-10.0)
[2022-10-02] MEDS: PANTOPRAZOLE 40MG TAB (PROTONIX) PO SCH (07:29)
[2022-10-02] MEDS: PREGABALIN 100 MG CAP (LYRICA) PO SCH (07:29)
[2022-10-02] MEDS: FAMOTIDINE 20 MG TAB PO SCH (07:29)
[2022-10-02 07:30] VITALS: BP 146/79
[2022-10-02] MEDS ORDERED: ONDANSETRON 4MG 2ML VIAL IV PRN (07:45)
[2022-10-02 07:51] LABS: BLOOD UREA NITROGEN 13 MG/DL (9-23); CALCIUM LEVEL 8.4 MG/DL (8.5-10.1); CARBON DIOXIDE LEVEL 25 MMOL/L (20-31); CHLORIDE LEVEL 105 MMOL/L (98-107); CREATININE FOR GFR 0.75 MG/DL (0.55-1.30); GLOMERULAR FILTRATION RATE > 60.0 (>51); GLUCOSE, FASTING 162 MG/DL (60-100); MAGNESIUM LEVEL 1.7 MG/DL (1.8-2.4); POTASSIUM SERUM 3.7 MMOL/L (3.5-5.1); SODIUM LEVEL 137 MMOL/L (136-145)
[2022-10-02] MEDS ORDERED: ONDANSETRON 4MG 2ML VIAL IV SCH (08:00)
[2022-10-02] MEDS ORDERED: METOPROLOL SUCC (TopROL XL) 50MG **XL** TAB PO SCH (09:00)
[2022-10-02] MEDS: MAG SULF 1GM/100ML (MAG RUN) 1 GM in IV 1 EA IV SCH ×3 (10:07→11:14)
== END 2022-10-02 14:29 | disposition home or self-care (01) | DRG 316 ==
LOC: M ED 18:21 → M ED INP 23:25 → M ICU 10-01 08:46 → M MSPAV 10-01 20:40
PROVIDERS: ADMIT Family Medicine; ATTEND Internal Medicine
DX: T82.848A Pain due to vascular prosthetic devices, implants and grafts, initial encounter (principal); C50.912 Malignant neoplasm of unspecified site of left female breast; I10 Essential (primary) hypertension; R07.89 Other chest pain; M79.7 Fibromyalgia; E78.5 Hyperlipidemia, unspecified; J45.909 Unspecified asthma, uncomplicated; M54.9 Dorsalgia, unspecified; G89.29 Other chronic pain; J44.9 Chronic obstructive pulmonary disease, unspecified; K21.9 Gastro-esophageal reflux disease without esophagitis; F17.210 Nicotine dependence, cigarettes, uncomplicated; G43.909 Migraine, unspecified, not intractable, without status migrainosus; R13.12 Dysphagia, oropharyngeal phase; E83.42 Hypomagnesemia; F41.9 Anxiety disorder, unspecified; G47.00 Insomnia, unspecified; Z20.822 Contact with and (suspected) exposure to COVID-19; Z79.899 Other long term (current) drug therapy; Z91.013 Allergy to seafood; Z88.8 Allergy status to other drugs, medicaments and biological substances; Z90.49 Acquired absence of other specified parts of digestive tract; Z91.041 Radiographic dye allergy status; Z88.2 Allergy status to sulfonamides; Z88.5 Allergy status to narcotic agent; Z91.030 Bee allergy status; Z83.3 Family history of diabetes mellitus; Z91.018 Allergy to other foods; Z92.21 Personal history of antineoplastic chemotherapy; Z90.79 Acquired absence of other genital organ(s)

== ENCOUNTER → 2022-10-03 | Outpatient (CLI) | payer MEDICARE, OTHER ==
[~2022-10-03] MED LIST changes: +LORA-930 PO; +SFHIBU200 PO
== END ==
LOC: M RAD 09:55
PROVIDERS: ATTEND Nurse Practitioner
DX: J06.9 Acute upper respiratory infection, unspecified (principal)

== ENCOUNTER → 2022-10-14 | Outpatient (POV) | payer MEDICARE, OTHER ==
[~2022-10-14] VITALS: Ht 177.8 cm; Wt 127.2 kg
[2022-10-14 15:45] VITALS: BP 153/74; O2SAT 97
== END ==
LOC: M IRPOV 15:20
PROVIDERS: ATTEND Radiology Diagnostic Radiology
DX: Z45.2 Encounter for adjustment and management of vascular access device (principal); Z91.030 Bee allergy status; Z88.2 Allergy status to sulfonamides; Z88.6 Allergy status to analgesic agent; Z88.5 Allergy status to narcotic agent; Z88.8 Allergy status to other drugs, medicaments and biological substances; Z91.013 Allergy to seafood; Z91.018 Allergy to other foods; Z91.041 Radiographic dye allergy status

== ENCOUNTER → 2022-11-03 | Outpatient (CLI) | payer MEDICARE, MEDICAID ==
[~2022-11-03] MED LIST changes: +TAMO20TA8 PO
== END ==
LOC: M WHC 12:16
PROVIDERS: ATTEND Nurse Practitioner Women's Health
DX: C50.912 Malignant neoplasm of unspecified site of left female breast (principal)
CPT/HCPCS: 77066; G0279

== ENCOUNTER → 2022-11-21 | Outpatient (REF) | payer MEDICARE, OTHER ==
[2022-11-21 08:44] LABS: BASO % 0.3 % (0.0-1.0); EOS # 0.3 10^3/uL (0.0-0.5); EOS % 2.3 % (0.0-3.0); HEMOGLOBIN 11.3 g/dl (12.0-15.5); LYMPH # 2.6 10^3/uL (1.5-5.0); LYMPH % 24.1 % (24.0-44.0); MEAN CORPUSCULAR HEMOGLOBIN 30.9 pg (27.0-33.0); MEAN CORPUSCULAR HGB CONC 31.4 g/dl (32.0-36.5); MEAN CORPUSCULAR VOLUME 98.4 fl (80.0-96.0); MONO # 0.5 10^3/uL (0.0-0.8); MONO % 4.2 % (2.0-8.0); NEUTROPHILS # 7.4 10^3/uL (1.5-8.5); NEUTROPHILS % 68.1 % (36.0-66.0); PLATELET COUNT, AUTOMATED 310 10^3/uL (150-450); RED BLOOD COUNT 3.66 10^6/uL (4.00-5.40); WHITE BLOOD COUNT 10.8 10^3/uL (4.0-10.0)
[2022-11-21 09:02] LABS: HEMOGLOBIN A1c 8.4 % (4.0-6.0)
[2022-11-21 09:06] LABS: CHOLESTEROL RISK RATIO 8.05 (<5); HDL CHOLESTEROL 26.8 MG/DL (>40); LDL CHOLESTEROL 121.6 MG/DL (<100); NON-HDL-C 189.2 MG/DL
[2022-11-21 09:13] LABS: THYROID STIMULATING HORMONE 1.623 uIU/ML (0.55-4.78)
== END ==
LOC: M LAB REF 07:52
PROVIDERS: ATTEND Physician Assistant
DX: E11.9 Type 2 diabetes mellitus without complications (principal)

== ENCOUNTER 2022-12-08 10:16 | Emergency (ER) | payer MEDICARE, OTHER ==
[~2022-12-08] VITALS: Ht 177.8 cm; Wt 125.0 kg
[~2022-12-08 10:16] MED LIST changes: +LORA-1041 PO; -LORA-674 PO; -PREG150C PO; +PREG150C2 PO; -PREG200C PO; +PREG200C2 PO; +RYBELSUS PO
[2022-12-08] MEDS ORDERED: MAG SULF 1GM/100ML (MAG RUN) 1 GM in IV 1 EA IV ONE (11:10)
[2022-12-08 11:11] LABS: BASO % 0.3 % (0.0-1.0); EOS # 0.2 10^3/uL (0.0-0.5); EOS % 1.4 % (0.0-3.0); HEMATOCRIT 35.3 % (36.0-47.0); HEMOGLOBIN 11.4 g/dl (12.0-15.5); LYMPH # 3.4 10^3/uL (1.5-5.0); LYMPH % 28.6 % (24.0-44.0); MEAN CORPUSCULAR HGB CONC 32.3 g/dl (32.0-36.5); MEAN CORPUSCULAR VOLUME 95.9 fl (80.0-96.0); MONO # 0.5 10^3/uL (0.0-0.8); MONO % 4.2 % (2.0-8.0); NEUTROPHILS # 7.6 10^3/uL (1.5-8.5); NEUTROPHILS % 64.3 % (36.0-66.0); PLATELET COUNT, AUTOMATED 292 10^3/uL (150-450); RED BLOOD COUNT 3.68 10^6/uL (4.00-5.40); WHITE BLOOD COUNT 11.8 10^3/uL (4.0-10.0)
[2022-12-08 11:34] LABS: CK-MB VALUE MASS 1.3 NG/ML (<3.6); LIPASE 46 U/L (12-53)
[2022-12-08 11:35] LABS: INR 1.01
[2022-12-08 11:36] LABS: CPK CREATINE PHOSPHOKINASE 55 U/L (34-145); MB/CK RELATIVE INDEX 2.36 (< OR =4)
[2022-12-08 11:36] LABS: PARTIAL THROMBOPLASTIN TIME 27.2 SECONDS (24.8-34.2)
[2022-12-08 11:37] LABS: ALBUMIN 3.1 G/DL (3.2-5.2); ALKALINE PHOSPHATASE 94 U/L (46-116); ALT/SGPT 27 U/L (7.0-40); AST/SGOT 28 U/L (<34); BILIRUBIN,DIRECT < 0.1 MG/DL (<0.4); BILIRUBIN,TOTAL 0.2 MG/DL (0.3-1.2); BLOOD UREA NITROGEN 13 MG/DL (9-23); CARBON DIOXIDE LEVEL 24 MMOL/L (20-31); CHLORIDE LEVEL 105 MMOL/L (98-107); GLOMERULAR FILTRATION RATE > 60.0 (>51); GLUCOSE, FASTING 149 MG/DL (60-100); POTASSIUM SERUM 4.1 MMOL/L (3.5-5.1); SODIUM LEVEL 137 MMOL/L (136-145); TOTAL PROTEIN 7.2 G/DL (5.7-8.2)
[2022-12-08 11:38] LABS: THYROID STIMULATING HORMONE 2.073 uIU/ML (0.55-4.78)
[2022-12-08 11:39] LABS: FREE T4 1.05 NG/DL (0.89-1.76)
[2022-12-08 12:37] LABS: CK-MB VALUE MASS 1.3 NG/ML (<3.6)
[2022-12-08 12:39] LABS: MB/CK RELATIVE INDEX 2.4 (< OR =4)
[2022-12-08 14:45] VITALS: BP 155/90; O2SAT 98
[2022-12-08 15:37] VITALS: TEMP 97.2
[2022-12-17] MEDS ORDERED: FLUC150T9 PO (08:31)
== END 2022-12-08 16:29 | disposition left against medical advice (07) ==
LOC: M ED 10:16
DX: R07.9 Chest pain, unspecified (principal); Z53.9 Procedure and treatment not carried out, unspecified reason; E11.9 Type 2 diabetes mellitus without complications; I10 Essential (primary) hypertension; E78.5 Hyperlipidemia, unspecified; E66.9 Obesity, unspecified; J44.9 Chronic obstructive pulmonary disease, unspecified; Z85.3 Personal history of malignant neoplasm of breast; F17.200 Nicotine dependence, unspecified, uncomplicated; Z79.899 Other long term (current) drug therapy; Z91.041 Radiographic dye allergy status; Z88.2 Allergy status to sulfonamides; Z91.030 Bee allergy status; Z88.5 Allergy status to narcotic agent; Z88.3 Allergy status to other anti-infective agents; Z91.013 Allergy to seafood; Z91.018 Allergy to other foods

== ENCOUNTER → 2023-01-21 | Outpatient (CLI) | payer MEDICARE, MEDICAID | LOC: M CARPUL 15:05 | PROVIDERS: ATTEND Nurse Practitioner | DX: C50.919 Malignant neoplasm of unspecified site of unspecified female breast (principal) ==

== ENCOUNTER → 2023-01-28 | Outpatient (CLI) | payer MEDICARE ==
[~2023-01-28] MED LIST changes: +CEFD1CAP9 PO; -CEFD300C41 PO; +EFFE37.52 PO; -FLUT50SP17; +FLUTISP; +GABA-282 PO; +OFLOSO; +OXYC1TAB23 PO
== END ==
LOC: M RAD 09:52
PROVIDERS: ATTEND Nurse Practitioner
DX: M79.89 Other specified soft tissue disorders (principal)

== ENCOUNTER 2023-02-02 07:58 | Emergency (ER) | payer MEDICARE ==
[~2023-02-02] VITALS: Ht 177.8 cm; Wt 127.3 kg
[~2023-02-02 07:58] MED LIST changes: -CEFD1CAP9 PO; +CEFD300C42 PO; -EFFE37.52 PO; +FLUT50SP17; -FLUTISP; -GABA-282 PO; -OXYC1TAB23 PO
[2023-02-02 08:19] VITALS: TEMP 98.7
[2023-02-02] MEDS ORDERED: SODIUM CHLORIDE 0.9% INJ 10 ML SYR IV SCH (09:00)
[2023-02-02 09:19] LABS: BASO # 0.1 10^3/uL (0.0-0.2); BASO % 0.5 % (0.0-1.0); EOS # 0.2 10^3/uL (0.0-0.5); EOS % 1.4 % (0.0-3.0); HEMATOCRIT 35.3 % (36.0-47.0); HEMOGLOBIN 11.3 g/dl (12.0-15.5); LYMPH # 2.4 10^3/uL (1.5-5.0); LYMPH % 23.1 % (24.0-44.0); MEAN CORPUSCULAR HEMOGLOBIN 30.2 pg (27.0-33.0); MEAN CORPUSCULAR VOLUME 94.4 fl (80.0-96.0); MONO # 0.4 10^3/uL (0.0-0.8); MONO % 4.2 % (2.0-8.0); NEUTROPHILS # 7.4 10^3/uL (1.5-8.5); NEUTROPHILS % 69.8 % (36.0-66.0); PLATELET COUNT, AUTOMATED 251 10^3/uL (150-450); RED BLOOD COUNT 3.74 10^6/uL (4.00-5.40); WHITE BLOOD COUNT 10.5 10^3/uL (4.0-10.0)
[2023-02-02 09:27] LABS: INR 1.04; PROTHROMBIN TIME 13.3 SECONDS (12.5-14.5)
[2023-02-02 09:28] LABS: PARTIAL THROMBOPLASTIN TIME 26.2 SECONDS (24.8-34.2)
[2023-02-02 09:34] LABS: ERYTHROCYTE SEDIMENTATION RATE 35 mm/hr (0-30)
[2023-02-02] MEDS ORDERED: NS 1,000 ML IV ONE (09:40)
[2023-02-02 09:42] LABS: CK-MB VALUE MASS < 1.0 NG/ML (<3.6)
[2023-02-02 09:44] LABS: CPK CREATINE PHOSPHOKINASE 49 U/L (34-145); MB/CK RELATIVE INDEX 2.04 (< OR =4)
[2023-02-02 09:45] LABS: ALBUMIN 2.9 G/DL (3.2-5.2); ALKALINE PHOSPHATASE 90 U/L (46-116); ALT/SGPT 24 U/L (7.0-40); AST/SGOT 31 U/L (<34); BILIRUBIN,DIRECT < 0.1 MG/DL (<0.4); BILIRUBIN,TOTAL 0.2 MG/DL (0.3-1.2); BLOOD UREA NITROGEN 18 MG/DL (9-23); CALCIUM LEVEL 8.6 MG/DL (8.5-10.1); CARBON DIOXIDE LEVEL 26 MMOL/L (20-31); CHLORIDE LEVEL 103 MMOL/L (98-107); CREATININE FOR GFR 0.78 MG/DL (0.55-1.30); GLOMERULAR FILTRATION RATE > 60.0 (>51); GLUCOSE, FASTING 208 MG/DL (60-100); MAGNESIUM LEVEL 1.4 MG/DL (1.8-2.4); POTASSIUM SERUM 3.9 MMOL/L (3.5-5.1); SODIUM LEVEL 137 MMOL/L (136-145); TOTAL PROTEIN 6.7 G/DL (5.7-8.2)
[2023-02-02 10:10] LABS: RSV AMPLIFICATION NEGATIVE (NEGATIVE)
[2023-02-02 10:57] LABS: CK-MB VALUE MASS < 1.0 NG/ML (<3.6)
[2023-02-02 10:58] LABS: CPK CREATINE PHOSPHOKINASE 58 U/L (34-145); MB/CK RELATIVE INDEX 1.72 (< OR =4)
[2023-02-02 11:01] VITALS: BP 146/111
[2023-02-02] MEDS ORDERED: MAG SULF 1GM/100ML (MAG RUN) 1 GM in IV 1 EA IV ONE (11:35)
[2023-02-02] MEDS ORDERED: PERCOCET 5MG/325MG TAB PO ONE (11:35)
[2023-02-02 13:13] VITALS: O2SAT 96
[2023-02-02] MEDS ORDERED: OXYC1TAB23 PO (15:18)
== END 2023-02-02 13:37 | disposition home or self-care (01) ==
LOC: M ED 07:58
DX: E83.42 Hypomagnesemia (principal); M79.671 Pain in right foot; C50.912 Malignant neoplasm of unspecified site of left female breast; I49.3 Ventricular premature depolarization; E11.9 Type 2 diabetes mellitus without complications; I10 Essential (primary) hypertension; J45.909 Unspecified asthma, uncomplicated; F17.200 Nicotine dependence, unspecified, uncomplicated; F43.10 Post-traumatic stress disorder, unspecified; F10.10 Alcohol abuse, uncomplicated; Z86.718 Personal history of other venous thrombosis and embolism; Z88.2 Allergy status to sulfonamides; Z88.5 Allergy status to narcotic agent; Z88.8 Allergy status to other drugs, medicaments and biological substances; Z91.013 Allergy to seafood; Z91.041 Radiographic dye allergy status; Z91.018 Allergy to other foods; Z79.52 Long term (current) use of systemic steroids; Z79.811 Long term (current) use of aromatase inhibitors; Z79.891 Long term (current) use of opiate analgesic; Z79.899 Other long term (current) drug therapy

== ENCOUNTER → 2023-02-12 | Outpatient (CLI) | payer MEDICARE ==
[~2023-02-12] MED LIST changes: +OXYC1TAB23 PO
== END ==
LOC: M RAD 08:35
PROVIDERS: ATTEND Otolaryngology
DX: H66.42 Suppurative otitis media, unspecified, left ear (principal)

== ENCOUNTER → 2023-05-22 | Outpatient (REF) | payer MEDICARE, MEDICAID ==
[~2023-05-22] MED LIST changes: +CEFD1CAP9 PO; -CEFD300C42 PO; +EFFE37.52 PO; -FLUT50SP17; +FLUTISP; +GABA-282 PO
[2023-05-22 11:14] LABS: HEMATOCRIT 39.4 % (36.0-47.0); HEMOGLOBIN 12.7 g/dl (12.0-15.5); MEAN CORPUSCULAR HEMOGLOBIN 28.3 pg (27.0-33.0); MEAN CORPUSCULAR HGB CONC 32.2 g/dl (32.0-36.5); MEAN CORPUSCULAR VOLUME 87.8 fl (80.0-96.0); PLATELET COUNT, AUTOMATED 380 10^3/uL (150-450); RED BLOOD COUNT 4.49 10^6/uL (4.00-5.40); WHITE BLOOD COUNT 11.8 10^3/uL (4.0-10.0)
[2023-05-22 11:51] LABS: HEMOGLOBIN A1c 9.6 % (4.0-6.0)
[2023-05-22 11:55] LABS: CHOLESTEROL RISK RATIO 5.77 (<5); HDL CHOLESTEROL 20.1 MG/DL (>40); LDL CHOLESTEROL 54.9 MG/DL (<100); NON-HDL-C 95.9 MG/DL; THYROID STIMULATING HORMONE 3.341 uIU/ML (0.55-4.78)
== END ==
LOC: M LAB REF 10:51
PROVIDERS: ATTEND Physician Assistant
DX: E11.40 Type 2 diabetes mellitus with diabetic neuropathy, unspecified (principal)

== ENCOUNTER → 2023-05-27 | Outpatient (CLI) | payer MEDICARE, MEDICAID ==
[~2023-05-27] MED LIST changes: +METF500T13
== END ==
LOC: M WHC 10:30
PROVIDERS: ATTEND Nurse Practitioner
DX: Z85.3 Personal history of malignant neoplasm of breast (principal); R92.322 Mammographic fibroglandular density, left breast; Z98.890 Other specified postprocedural states
CPT/HCPCS: 77065; G0279

== ENCOUNTER → 2023-05-27 | Outpatient (CLI) | payer MEDICARE, MEDICAID ==
[~2023-05-27] MED LIST changes: -METF500T13
== END ==
LOC: M WHC 09:46
PROVIDERS: ATTEND Nurse Practitioner
DX: C50.912 Malignant neoplasm of unspecified site of left female breast (principal); Z13.820 Encounter for screening for osteoporosis; M81.0 Age-related osteoporosis without current pathological fracture

== ENCOUNTER → 2023-11-13 | Outpatient (CLI) | payer MEDICARE, MEDICAID ==
[~2023-11-13] MED LIST changes: +AMOX875T2; +CETI-24; +ESOM40CA35; +LEVO1TAB40 PO; +METF500T13; +ONDA-284 PO; -ONDA8TAB8 PO; -POTA10CA60 PO; +POTA10CA70 PO; -ROSU40TA4 PO; +ROSU40TA81 PO
== END ==
LOC: M ONCR 11:25
PROVIDERS: ATTEND General Practice
DX: C50.412 Malignant neoplasm of upper-outer quadrant of left female breast (principal); F17.210 Nicotine dependence, cigarettes, uncomplicated; R09.89 Other specified symptoms and signs involving the circulatory and respiratory systems; R05.9 Cough, unspecified; Z79.84 Long term (current) use of oral hypoglycemic drugs; Z79.810 Long term (current) use of selective estrogen receptor modulators (SERMs); Z79.899 Other long term (current) drug therapy; Z88.1 Allergy status to other antibiotic agents; Z88.2 Allergy status to sulfonamides; Z88.5 Allergy status to narcotic agent; Z88.8 Allergy status to other drugs, medicaments and biological substances; Z91.013 Allergy to seafood; Z91.018 Allergy to other foods; Z91.030 Bee allergy status; Z92.21 Personal history of antineoplastic chemotherapy; Z92.3 Personal history of irradiation

== ENCOUNTER → 2023-12-01 | Outpatient (CLI) | payer MEDICARE, OTHER ==
[~2023-12-01] MED LIST changes: +ROSU40TA63 PO; -ROSU40TA81 PO
== END ==
LOC: M WHC 09:02
PROVIDERS: ATTEND Nurse Practitioner
DX: Z85.3 Personal history of malignant neoplasm of breast (principal); Z98.890 Other specified postprocedural states
CPT/HCPCS: 77066; G0279

== ENCOUNTER → 2024-01-28 | Outpatient (CLI) | payer MEDICARE, MEDICAID ==
[~2024-01-28] MED LIST changes: +AUGM500T34 PO; +GABA-1172 PO; -GABA-282 PO; -ROSU40TA63 PO; +ROSU40TA81 PO
== END ==
LOC: M RAD 12:57
PROVIDERS: ATTEND General Practice
DX: Z12.2 Encounter for screening for malignant neoplasm of respiratory organs (principal)

== ENCOUNTER 2024-03-21 11:08 | Emergency (ER) | payer MEDICARE, MEDICAID ==
[~2024-03-21] VITALS: Ht 180.3 cm; Wt 122.3 kg
[~2024-03-21 11:08] MED LIST changes: +DESI25TA PO; -DESI25TA59 PO; +FLUC-1 PO; -FLUC200T4 PO; +NYST1POW3 TOP; -NYST1POW9 TOP; +POTA-298 PO; +VENL75TA2 PO
[2024-03-21 12:24] VITALS: TEMP 98.4
[2024-03-21] MEDS: SODIUM CHLORIDE 0.9% INJ 10 ML SYR IV PRN (13:15)
[2024-03-21 13:28] LABS: BASO % 0.6 % (0.0-1.0); EOS # 0.2 10^3/uL (0.0-0.5); EOS % 2.8 % (0.0-3.0); HEMATOCRIT 38.8 % (36.0-47.0); HEMOGLOBIN 12.8 g/dl (12.0-15.5); LYMPH # 2.4 10^3/uL (1.5-5.0); LYMPH % 34.8 % (24.0-44.0); MEAN CORPUSCULAR HEMOGLOBIN 32.5 pg (27.0-33.0); MEAN CORPUSCULAR VOLUME 98.5 fl (80.0-96.0); MONO # 0.4 10^3/uL (0.0-0.8); MONO % 5.1 % (2.0-8.0); NEUTROPHILS # 3.9 10^3/uL (1.5-8.5); PLATELET COUNT, AUTOMATED 259 10^3/uL (150-450); RED BLOOD COUNT 3.94 10^6/uL (4.00-5.40)
[2024-03-21] MEDS ORDERED: LYRI200C PO (14:42)
[2024-03-21 15:07] LABS: BLOOD UREA NITROGEN 12 MG/DL (9-23); CALCIUM LEVEL 9.1 MG/DL (8.5-10.1); CARBON DIOXIDE LEVEL 24 MMOL/L (20-31); CHLORIDE LEVEL 107 MMOL/L (98-107); CREATININE FOR GFR 0.69 MG/DL (0.55-1.30); GLOMERULAR FILTRATION RATE > 60.0 (>51); GLUCOSE, FASTING 121 MG/DL (60-100); MAGNESIUM LEVEL 1.6 MG/DL (1.8-2.4); POTASSIUM SERUM 3.7 MMOL/L (3.5-5.1); SODIUM LEVEL 141 MMOL/L (136-145)
[2024-03-21] MEDS: MAG SULF 1GM/100ML (MAG RUN) 1 GM in IV 1 EA IV ONE (15:21)
[2024-03-21] MEDS ORDERED: SLOWTAB2 PO (15:42)
[2024-03-21] MEDS ORDERED: IPRA0.00 INH (15:42)
[2024-03-21] MEDS ORDERED: AMOX875T2 PO (15:42)
[2024-03-21 16:30] VITALS: BP 153/75; O2SAT 96
== END 2024-03-21 17:10 | disposition home or self-care (01) ==
LOC: M ED 11:08 → EDBD 11:08 → M ED 17:10
DX: H65.03 Acute serous otitis media, bilateral (principal); B97.4 Respiratory syncytial virus as the cause of diseases classified elsewhere; E83.42 Hypomagnesemia; E11.9 Type 2 diabetes mellitus without complications; I10 Essential (primary) hypertension; J44.9 Chronic obstructive pulmonary disease, unspecified; Z90.49 Acquired absence of other specified parts of digestive tract; Z88.2 Allergy status to sulfonamides; Z88.8 Allergy status to other drugs, medicaments and biological substances; Z91.041 Radiographic dye allergy status; Z79.899 Other long term (current) drug therapy
CPT/HCPCS: 71046; 80048; 83735; 85025; 87486; 87581; 87633; 87798; 96365; 96366; 99284; J1642; J3475

== ENCOUNTER → 2024-04-06 | Outpatient (CLI) | payer MEDICAID, MEDICARE | LOC: M SLEEP 20:00 | PROVIDERS: ATTEND Internal Medicine Critical Care Medicine | DX: G47.33 Obstructive sleep apnea (adult) (pediatric) (principal) ==

== ENCOUNTER 2024-07-11 18:09 | Emergency (ER) | payer MEDICARE, MEDICAID ==
[~2024-07-11] VITALS: Ht 180.3 cm; Wt 116.1 kg
[2024-07-11 18:26] VITALS: TEMP 98.1
[2024-07-11] MEDS ORDERED: SODIUM CHLORIDE 0.9% INJ 10 ML SYR IV PRN (18:30)
[2024-07-11 19:51] LABS: BASO % 0.3 % (0.0-1.0); EOS # 0.2 10^3/uL (0.0-0.5); EOS % 1.5 % (0.0-3.0); HEMATOCRIT 40.1 % (36.0-47.0); HEMOGLOBIN 13.3 g/dl (12.0-15.5); LYMPH # 3.9 10^3/uL (1.5-5.0); LYMPH % 30.8 % (24.0-44.0); MEAN CORPUSCULAR HEMOGLOBIN 32.5 pg (27.0-33.0); MEAN CORPUSCULAR HGB CONC 33.2 g/dl (32.0-36.5); MONO # 0.6 10^3/uL (0.0-0.8); MONO % 4.3 % (2.0-8.0); NEUTROPHILS # 7.9 10^3/uL (1.5-8.5); NEUTROPHILS % 62.2 % (36.0-66.0); PLATELET COUNT, AUTOMATED 272 10^3/uL (150-450); RED BLOOD COUNT 4.09 10^6/uL (4.00-5.40); WHITE BLOOD COUNT 12.8 10^3/uL (4.0-10.0)
[2024-07-11 20:33] LABS: ALBUMIN 3.3 G/DL (3.2-5.2); ALKALINE PHOSPHATASE 100 U/L (35-104); ALT/SGPT 26 U/L (7.0-40); AST/SGOT 38 U/L (<34); BILIRUBIN,DIRECT < 0.1 MG/DL (<0.4); BILIRUBIN,TOTAL 0.2 MG/DL (0.3-1.2); BLOOD UREA NITROGEN 13 MG/DL (9-23); CARBON DIOXIDE LEVEL 25 MMOL/L (20-31); CHLORIDE LEVEL 104 MMOL/L (98-107); CPK CREATINE PHOSPHOKINASE 74 U/L (34-145); CREATININE FOR GFR 0.63 MG/DL (0.55-1.30); GLOMERULAR FILTRATION RATE > 60.0 (>51); GLUCOSE, FASTING 221 MG/DL (60-100); MB/CK RELATIVE INDEX 1.35 (< OR =4); POTASSIUM SERUM 3.5 MMOL/L (3.5-5.1); SODIUM LEVEL 139 MMOL/L (136-145); TOTAL PROTEIN 7.6 G/DL (5.7-8.2)
[2024-07-11 21:27] LABS: CK-MB VALUE MASS < 1.0 NG/ML (<3.6)
[2024-07-11 21:29] LABS: CPK CREATINE PHOSPHOKINASE 72 U/L (34-145); MB/CK RELATIVE INDEX 1.38 (< OR =4)
[2024-07-11 21:45] VITALS: BP 131/63; O2SAT 97
[2024-07-11] MEDS ORDERED: ASPI-527 PO (21:56)
[2024-07-12] MEDS ORDERED: SODIUM CHLORIDE 0.9% INJ 10 ML SYR IV SCH (09:00)
== END 2024-07-11 22:22 | disposition home or self-care (01) ==
LOC: M ED 18:09 → EDBD 18:09 → M ED 22:22
DX: R07.89 Other chest pain (principal); E11.9 Type 2 diabetes mellitus without complications; I10 Essential (primary) hypertension; E78.5 Hyperlipidemia, unspecified; K21.9 Gastro-esophageal reflux disease without esophagitis; M79.7 Fibromyalgia; G47.33 Obstructive sleep apnea (adult) (pediatric); F10.11 Alcohol abuse, in remission; Z87.891 Personal history of nicotine dependence; Z79.84 Long term (current) use of oral hypoglycemic drugs; Z79.899 Other long term (current) drug therapy; Z88.2 Allergy status to sulfonamides; Z91.041 Radiographic dye allergy status; Z91.030 Bee allergy status; Z88.5 Allergy status to narcotic agent; Z88.3 Allergy status to other anti-infective agents; Z91.013 Allergy to seafood; Z91.018 Allergy to other foods; Z88.8 Allergy status to other drugs, medicaments and biological substances
CPT/HCPCS: 71045; 80048; 80076; 82550; 82553; 84484; 85025; 93005; 93041; 94760; 96374; 99285; J1642

== ENCOUNTER 2024-08-11 10:21 | Emergency (ER) | payer MEDICARE, MEDICAID ==
[~2024-08-11] VITALS: Ht 180.3 cm; Wt 119.7 kg
[~2024-08-11 10:21] MED LIST changes: +AMLO-751 PO; -AMLO10TA PO; +ASPI-527 PO; -PREG25CA PO; +PREG25CA63 PO; -PREG50CA PO; +PREG50CA87 PO; +TOPI-257 PO; -TOPI100T9 PO
[2024-08-11 10:23] VITALS: BP 143/63; TEMP 97.9; O2SAT 98
[2024-08-11] MEDS: NS (Normal Saline) 0.9% 1,000 ML IV ONE (11:20)
[2024-08-11 11:26] LABS: BASO % 0.4 % (0.0-1.0); EOS # 0.2 10^3/uL (0.0-0.5); EOS % 1.9 % (0.0-3.0); HEMATOCRIT 42.3 % (36.0-47.0); HEMOGLOBIN 13.4 g/dl (12.0-15.5); LYMPH # 2.9 10^3/uL (1.5-5.0); LYMPH % 30.1 % (24.0-44.0); MEAN CORPUSCULAR HEMOGLOBIN 31.3 pg (27.0-33.0); MEAN CORPUSCULAR HGB CONC 31.7 g/dl (32.0-36.5); MEAN CORPUSCULAR VOLUME 98.8 fl (80.0-96.0); MONO # 0.4 10^3/uL (0.0-0.8); MONO % 4.1 % (2.0-8.0); NEUTROPHILS % 62.8 % (36.0-66.0); PLATELET COUNT, AUTOMATED 284 10^3/uL (150-450); RED BLOOD COUNT 4.28 10^6/uL (4.00-5.40); WHITE BLOOD COUNT 9.5 10^3/uL (4.0-10.0)
[2024-08-11 11:27] LABS: VENOUS HCO3 24.3 MMOL/L (23.0-27.0); VENOUS O2 SATURATION 85.4 % (60.0-80.0); VENOUS PARTIAL PRESSURE CO2 42.9 mmHg (38.0-50.0); VENOUS PARTIAL PRESSURE O2 49.1 mmHg (30.0-50.0); VENOUS PH 7.371 UNITS (7.330-7.430); VENOUS STANDARD HCO3 23.3 MMOL/L; VENOUS TOTAL CO2 25.6 MMOL/L (24.0-28.0)
[2024-08-11 11:52] LABS: OSMOLALITY SERUM 310 MOSM/KG (275-295)
[2024-08-11 11:55] LABS: LIPASE 40 U/L (12-53)
[2024-08-11 11:57] LABS: ACETONE/KETONE 0.34 MMOL/L (0.02-0.27)
[2024-08-11 11:58] LABS: ALBUMIN 3.4 G/DL (3.2-5.2); ALKALINE PHOSPHATASE 106 U/L (35-104); ALT/SGPT 33 U/L (7.0-40); AST/SGOT 34 U/L (<34); BILIRUBIN,DIRECT < 0.1 MG/DL (<0.4); BILIRUBIN,TOTAL 0.3 MG/DL (0.3-1.2); BLOOD UREA NITROGEN 13 MG/DL (9-23); CALCIUM LEVEL 9.2 MG/DL (8.5-10.1); CARBON DIOXIDE LEVEL 25 MMOL/L (20-31); CHLORIDE LEVEL 105 MMOL/L (98-107); CREATININE FOR GFR 0.61 MG/DL (0.55-1.30); GLOMERULAR FILTRATION RATE > 90.0 (>51); GLUCOSE, FASTING 344 MG/DL (60-100); MAGNESIUM LEVEL 1.7 MG/DL (1.8-2.4); PHOSPHORUS LEVEL 3.3 MG/DL (2.5-4.9); SODIUM LEVEL 139 MMOL/L (136-145); TOTAL PROTEIN 7.2 G/DL (5.7-8.2)
[2024-08-11 12:05] LABS: HEMOGLOBIN A1c 10.9 % (4.0-6.0)
[2024-08-11 12:47] LABS: KETONE, URINE AUTO RFX NEGATIVE (NEGATIVE); LEUKOCYTE ESTERASE UR AUTO RFX NEGATIVE (NEGATIVE); MUCUS, URINE RFX SMALL (NEGATIVE); NITRITE, URINE AUTO RFX NEGATIVE (NEGATIVE); RBC, URINE AUTO RFX 2 /HPF (0-3); SQUAM EPITHELIAL CELL UR AURFX 3 /HPF (0-6); WBC, URINE AUTO RFX 2 /HPF (0-3)
[2024-08-11] MEDS: MAG SULF 1GM/100ML (MAG RUN) 1 GM in IV 1 EA IV ONE (13:59)
== END 2024-08-11 15:38 | disposition home or self-care (01) ==
LOC: M ED 10:21
DX: E11.65 Type 2 diabetes mellitus with hyperglycemia (principal); J45.909 Unspecified asthma, uncomplicated; C50.919 Malignant neoplasm of unspecified site of unspecified female breast; F17.200 Nicotine dependence, unspecified, uncomplicated; Z79.84 Long term (current) use of oral hypoglycemic drugs; Z79.899 Other long term (current) drug therapy; Z91.041 Radiographic dye allergy status; Z88.2 Allergy status to sulfonamides; Z91.030 Bee allergy status; Z88.5 Allergy status to narcotic agent; Z88.3 Allergy status to other anti-infective agents; Z91.013 Allergy to seafood; Z91.018 Allergy to other foods; Z88.8 Allergy status to other drugs, medicaments and biological substances
CPT/HCPCS: 36415; 71045; 80047; 80048; 80076; 81001; 82010; 82803; 83036; 83690; 83735; 83930; 84100; 85025; 93005; 93041; 94760; 96374; 99284; J1642; J3475

== ENCOUNTER 2024-08-15 18:16 | Emergency (ER) | payer MEDICARE, MEDICAID ==
[~2024-08-15] VITALS: Ht 180.3 cm; Wt 117.3 kg
[2024-08-15 18:29] VITALS: BP 134/62; TEMP 98.4; O2SAT 95
[2024-08-15] MEDS: NORCO, ANEXSIA 5/325MG TABLET (HYDROcodone/ACETAMINOPHEN) PO ONE (20:35)
[2024-08-15] MEDS ORDERED: MIRA3350 PO (20:37)
[2024-08-15] MEDS ORDERED: HYDR-3713 PO (20:37)
== END 2024-08-15 20:45 | disposition home or self-care (01) ==
LOC: EDBD 18:16 → M ED 18:16
DX: S46.012A Strain of muscle(s) and tendon(s) of the rotator cuff of left shoulder, initial encounter (principal); M75.32 Calcific tendinitis of left shoulder; X58.XXXA Exposure to other specified factors, initial encounter; Y92.009 Unspecified place in unspecified non-institutional (private) residence as the place of occurrence of the external cause; Y93.E8 Activity, other personal hygiene; Y99.9 Unspecified external cause status; F17.200 Nicotine dependence, unspecified, uncomplicated; Z79.899 Other long term (current) drug therapy; Z88.2 Allergy status to sulfonamides; Z88.3 Allergy status to other anti-infective agents; Z88.5 Allergy status to narcotic agent; Z88.8 Allergy status to other drugs, medicaments and biological substances; Z91.013 Allergy to seafood; Z91.030 Bee allergy status; Z91.041 Radiographic dye allergy status; Z91.018 Allergy to other foods

== ENCOUNTER → 2024-08-30 | Outpatient (CLI) | payer MEDICARE, MEDICAID ==
[~2024-08-30] MED LIST changes: +HYDR-3713 PO; +MIRA3350 PO
== END ==
LOC: M ONCM 09:28
PROVIDERS: ATTEND Dietitian, Registered
DX: C50.912 Malignant neoplasm of unspecified site of left female breast (principal); Z71.3 Dietary counseling and surveillance; Z68.36 Body mass index [BMI] 36.0-36.9, adult

== ENCOUNTER → 2024-10-25 | Outpatient (CLI) | payer MEDICARE, MEDICAID | LOC: M ONCM 08:30 | PROVIDERS: ATTEND Dietitian, Registered | DX: Z71.3 Dietary counseling and surveillance (principal); E66.9 Obesity, unspecified; Z68.36 Body mass index [BMI] 36.0-36.9, adult; Z79.82 Long term (current) use of aspirin; Z79.84 Long term (current) use of oral hypoglycemic drugs; Z79.899 Other long term (current) drug therapy ==

== ENCOUNTER → 2024-11-29 | Outpatient (CLI) | payer MEDICARE, MEDICAID ==
[~2024-11-29] MED LIST changes: +SLOW1TAB3 PO; -SLOWTAB2 PO
== END ==
LOC: M ONCM 08:55
PROVIDERS: ATTEND Dietitian, Registered
DX: Z71.3 Dietary counseling and surveillance (principal); E66.9 Obesity, unspecified; Z68.36 Body mass index [BMI] 36.0-36.9, adult; Z79.4 Long term (current) use of insulin; Z79.82 Long term (current) use of aspirin

== ENCOUNTER → 2024-12-08 | Outpatient (REF) | payer MEDICARE, MEDICAID ==
[2024-12-08 09:21] LABS: BASO # 0.0 10^3/uL (0.0-0.2); BASO % 0.3 % (0.0-1.0); EOS # 0.2 10^3/uL (0.0-0.5); EOS % 2.0 % (0.0-3.0); LYMPH # 3.0 10^3/uL (1.5-5.0); LYMPH % 28.9 % (24.0-44.0); MONO # 0.4 10^3/uL (0.0-0.8); MONO % 4.2 % (2.0-8.0); NEUTROPHILS # 6.6 10^3/uL (1.5-8.5); NEUTROPHILS % 63.7 % (36.0-66.0); PLATELET COUNT, AUTOMATED 280 10^3/uL (150-450)
[2024-12-08 09:51] LABS: ESTIMATED AVERAGE GLUCOSE 243.0 MG/DL (60-110)
[2024-12-08 09:55] LABS: ALT/SGPT 30 U/L (7.0-40); AST/SGOT 44 U/L (<34); CALCIUM LEVEL 9.6 MG/DL (8.5-10.1); CARBON DIOXIDE LEVEL 24 MMOL/L (20-31); CHLORIDE LEVEL 104 MMOL/L (98-107); CHOLESTEROL LEVEL 250 MG/DL (<200); CHOLESTEROL RISK RATIO 8.11 (<5); CREATININE FOR GFR 0.63 MG/DL (0.55-1.30); GLOMERULAR FILTRATION RATE > 90.0 (>51); NON-HDL-C 219.2 MG/DL; POTASSIUM SERUM 4.2 MMOL/L (3.5-5.1); SODIUM LEVEL 141 MMOL/L (136-145); TRIGLYCERIDES LEVEL 501 MG/DL (<150)
[2024-12-08 09:57] LABS: VITAMIN B12 LEVEL 574 PG/ML (211-911)
[2024-12-08 10:29] LABS: APPEARANCE, URINE HAZY (CLEAR); BACTERIA, URINE AUTO 2+ (NEGATIVE); BILIRUBIN, URINE AUTO NEGATIVE (NEGATIVE); BLOOD, URINE BLOOD NEGATIVE (NEGATIVE); GLUCOSE, URINE (UA) AUTO 1+ mg/dL (NEGATIVE); KETONE, URINE AUTO TRACE mg/dL (NEGATIVE); LEUKOCYTE ESTERASE, URINE AUTO NEGATIVE (NEGATIVE); MUCUS, URINE SMALL (NEGATIVE); NITRITE, URINE AUTO NEGATIVE (NEGATIVE); PROTEIN, URINE AUTO NEGATIVE (NEGATIVE); RBC, URINE AUTO 0 /HPF (0-3); SPECIFIC GRAVITY URINE AUTO 1.026 (1.002-1.035); SQUAMOUS EPITHELIAL CELL UR AU 3 /HPF (0-6); UROBILINOGEN, URINE AUTO 0.2 mg/dL (0.0-2.0); WBC, URINE AUTO 2 /HPF (0-3)
[2024-12-08 10:58] LABS: CREATININE, URINE 144.8 MG/DL; MALB URINE SIEMENS 6.0 MG/L; MAU/CREAT RATIO 4.1 MCG/MG (0.0-30.0)
== END ==
LOC: M LAB REF 08:32
PROVIDERS: ATTEND Physician Assistant Medical
DX: E11.69 Type 2 diabetes mellitus with other specified complication (principal)